=== PATIENT | female | born 1995 | race Caucasian/White ===

== ENCOUNTER 2017-03-12 13:50 | Inpatient (IN) | payer MEDICAID, OTHER ==
[2017-03-12] MEDS ORDERED: predniSONE 20 MG TAB PO ONE (13:55)
[2017-03-12] MEDS ORDERED: IPRATROPIUM/ALBUTEROL 3 ML DEYVIAL ONE ×2 (14:04→15:06)
[2017-03-12] MEDS ORDERED: ONDANSETRON DISINTEGRATING 4 MG TAB ONE (14:08)
[2017-03-12] MEDS ORDERED: ONDANSETRON DISINTEGRATING 4 MG TAB PO ONE (14:10)
[2017-03-12 15:13] LABS: % IMMATURE GRANULYOCYTES 0.3 % (0.0-1.1); ABSOLUTE IMMATURE GRANULOCYTES 0.05 10^3/uL (0.00-0.10); ADD DIFF? NO; ADD MORPH? NO; ADD SCAN? NO; ATYPICAL LYMPHOCYTE FLAG 20 (0-99); FRAGMENT RBC FLAG 0 (0-99); HEMATOCRIT 46.2 % (38.0-47.0); HEMOGLOBIN 15.7 g/dL (12.6-16.3); LEFT SHIFT FLG 0 (0-99); LIPEMIA HEMOLYSIS FLAG 90 (0-99); MEAN CELL VOLUME 85.2 fL (81.5-99.8); MEAN PLATELET VOLUME 10.3 fL (8.7-11.7); PLATELET CLUMPS FLAG 20 (0-99); PLATELET COUNT 473 10^3/uL (150-400); RED BLOOD CELL COUNT 5.42 10^6/uL (4.18-5.33); RED CELL DISTRIBUTION WIDTH 12.6 % (11.5-15.2)
[2017-03-12 15:26] LABS: INR 1.1 (0.83-1.16); PROTIME(PATIENT) 14.1 SEC (12.0-15.0)
[2017-03-12 15:27] LABS: APTT 36.5 SEC (23.0-38.0)
[2017-03-12] MEDS ORDERED: ONDANSETRON 4 MG/2 ML VIAL IVP PRN (15:36)
[2017-03-12] MEDS ORDERED: ONDANSETRON DISINTEGRATING 4 MG TAB PO PRN (15:36)
[2017-03-12] MEDS ORDERED: NS 1,000 ML IV ONE (15:36)
[2017-03-12] MEDS ORDERED: ACETAMINOPHEN 325 MG TAB PO PRN (15:36)
[2017-03-12] MEDS ORDERED: AZITHROMYCIN IV 500 MG in D5W 250 ML IV ONE (15:37)
[2017-03-12 15:41] LABS: ANION GAP 13 mEq/L (8-16); CALCIUM 9.3 mg/dL (8.5-10.4); CARBON DIOXIDE 23 mEq/l (22-31); CHLORIDE 103 mEq/L (97-110); CREATININE 0.6 mg/dL (0.6-1.0); GLOMERULAR FILTRATION RATE > 60; GLUCOSE 105 mg/dL (70-100); POTASSIUM 4.2 mEq/L (3.5-5.2); SODIUM 139 mEq/L (134-144)
--- NOTE | 2017-03-12 15:48 | EDPHY ---
H & P Stated Complaint: Asthma Exacerbation - Personal History Current Tetanus/Diphtheria Vaccine: Unsure Current Tetanus Diphtheria and Acellular Pertussis (TDAP): Unsure - Medical/Surgical History Hx Asthma: Yes Hx Chronic Respiratory Disease: No Hx Diabetes: No Hx Cardiac Disease: No Hx Renal Disease: No Hx Cirrhosis: No Hx Alcoholism: No Hx HIV/AIDS: No Hx Splenectomy or Spleen Trauma: No Other PMH: asthma - Social History Smoking Status: Former smoker HPI/ROS: Chief complaint: Asthma exacerbation History of present illness: This is a 21-year-old female who presents to the emergency department by EMS for an asthma exacerbation. Patient reports worsening trouble breathing over the last few days. She is unable to catch her breath. She denies precipitating factors. Denies alleviating factors. She does state she has had intermittent problems with her asthma for the last few weeks. Approximately 6 weeks ago she had an asthma exacerbation. She was seen at [facility] and given nebulizers, steroids and given an antibiotic because she was told she also had pneumonia. She is not sure what antibiotic it was but she took the entire course. She does feel like she improved after that episode but is again worsening. Review of systems: A 10 point review of systems was obtained and other than described above was negative (Fan Thacker) - Physical Exam Exam: General Appearance: Alert, unwell appearing. Eyes: Pupils equal and round no pallor or injection. ENT, Mouth: Mucous membranes moist. Respiratory: Patient's tachypnea. She is using accessory muscles. Diffuse wheezing is noted. Cardiovascular: Regular rate and rhythm. Gastrointestinal: Abdomen is soft and nontender, no masses, bowel sounds normal. Neurological: Alert and oriented. Strength and sensation intact and symmetrical. Skin: Warm and dry, no rashes. Musculoskeletal: Neck is supple nontender. Extremities are symmetrical, full range of motion. Psychiatric: Patient is oriented X 3, there is no agitation. (Fan Thacker) Constitutional: Initial Vital Signs Temperature (C) 37.3 C 03/12/17 13:56 Heart Rate 145 H 03/12/17 13:56 Respiratory Rate 24 H 03/12/17 13:56 Blood Pressure 113/84 H 03/12/17 13:56 O2 Sat (%) 96 03/12/17 13:56 O2 Delivery Mode Simple Mask O2 (L/minute) 15 Allergies/Adverse Reactions: No Known Allergies Allergy (Verified 03/12/17 16:17) Home Medications: Medication Instructions Recorded Albuterol [Ventolin Hfa Inhaler] 200 puffs IH Q3-4PRN PRN 03/12/17 Buprenorphine HCl/Naloxone HCl 1 each SL BID 03/12/17 [Suboxone 8 mg-2 mg Sl Film] Citalopram [CeleXA] 30 mg PO HS 03/12/17 Levonorgestrel [Mirena] 1 each IY AD 03/12/17 Medical Decision Making - Diagnostics Imaging: I viewed and interpreted images myself - Diagnostics Imaging Results: Imaging Impressions Chest X-Ray 03/12/17 13:56 Impression: Patchy interstitial infiltrates in the right middle lobe and lingula compatible with interstitial pneumonia.. ED Course/Re-evaluation: Patient is discussed with my secondary supervising physician Dr. Russell Rangel. Patient presents to the emergency department concerned she is having an asthma exacerbation. On presentation she has increased work of breathing. She is hypoxic. She has been given DuoNeb, continuous nebulizer and steroids but remains hypoxic. Chest x-ray is obtained and does show multi lobe pneumonia. She is started on Rocephin and azithromycin. Given asthma exacerbation with underlying pneumonia and persistent hypoxia she will be admitted to Dr. Ferreira for further evaluation and care. The plan has been discussed with the patient voiced understanding and agreement with it. (Fan Thacker) I did not see this patient while she was in the emergency department. However her care was discussed with the PA while the patient was in the department. I agree with treatment plan and management (Russell Rangel) Differential Diagnosis: Included but not limited to asthma exacerbation, status asthmaticus, bronchitis , pneumonia (Fan Thacker) - Data Points Laboratory Results: Laboratory Results 03/12/17 14:01 03/12/17 14:01 03/12/17 03/12/17 03/12/17 15:30 14:01 14:01 WBC RBC Hgb Hct MCV MCH MCHC RDW Plt Count MPV Neut % (Auto) Lymph % (Auto) Beadle % (Auto) Eos % (Auto) Baso % (Auto) Nucleat RBC Rel Count Absolute Neuts (auto) Absolute Lymphs (auto) Absolute Monos (auto) Absolute Eos (auto) Absolute Basos (auto) Absolute Nucleated RBC Immature Gran % Immature Gran # PT INR APTT VBG Lactic Acid 1.9 mmol/L mmol/L (0.7-2.1) Sodium 139 mEq/L mEq/L (134-144) Potassium 4.2 mEq/L mEq/L (3.5-5.2) Chloride 103 mEq/L mEq/L (97-110) Carbon Dioxide 23 mEq/l mEq/l (22-31) Anion Gap 13 mEq/L mEq/L (8-16) BUN 5 mg/dL L mg/dL (7-23) Creatinine 0.6 mg/dL mg/dL (0.6-1.0) Estimated GFR > 60 Glucose 105 mg/dL H mg/dL (70-100) Calcium 9.3 mg/dL mg/dL (8.5-10.4) Total Bilirubin 1.0 mg/dL mg/dL (0.1-1.4) Beta HCG, Qual NEGATIVE 03/12/17 03/12/17 14:01 14:00 WBC 15.01 10^3/uL H 10^3/uL (3.80-9.50) RBC 5.42 10^6/uL H 10^6/uL (4.18-5.33) Hgb 15.7 g/dL g/dL (12.6-16.3) Hct 46.2 % % (38.0-47.0) MCV 85.2 fL fL (81.5-99.8) MCH 29.0 pg pg (27.9-34.1) MCHC 34.0 g/dL g/dL (32.4-36.7) RDW 12.6 % % (11.5-15.2) Plt Count 473 10^3/uL H 10^3/uL (150-400) MPV 10.3 fL fL (8.7-11.7) Neut % (Auto) 55.1 % % (39.3-74.2) Lymph % (Auto) 19.5 % % (15.0-45.0) Beadle % (Auto) 7.7 % % (4.5-13.0) Eos % (Auto) 15.4 % H % (0.6-7.6) Baso % (Auto) 2.0 % H % (0.3-1.7) Nucleat RBC Rel Count 0.0 % % (0.0-0.2) Absolute Neuts (auto) 8.26 10^3/uL H 10^3/uL (1.70-6.50) Absolute Lymphs (auto) 2.93 10^3/uL 10^3/uL (1.00-3.00) Absolute Monos (auto) 1.16 10^3/uL H 10^3/uL (0.30-0.80) Absolute Eos (auto) 2.31 10^3/uL H 10^3/uL (0.03-0.40) Absolute Basos (auto) 0.30 10^3/uL H 10^3/uL (0.02-0.10) Absolute Nucleated RBC 0.00 10^3/uL 10^3/uL (0-0.01) Immature Gran % 0.3 % % (0.0-1.1) Immature Gran # 0.05 10^3/uL 10^3/uL (0.00-0.10) PT 14.1 SEC SEC (12.0-15.0) INR 1.10 (0.83-1.16) APTT 36.5 SEC SEC (23.0-38.0) VBG Lactic Acid Sodium Potassium Chloride Carbon Dioxide Anion Gap BUN Creatinine Estimated GFR Glucose Calcium Total Bilirubin Beta HCG, Qual Medications Given: Discontinued Medications Ceftriaxone Sodium/Dextrose (Rocephin 1 Gm (Premix)) 50 mls @ 100 mls/hr IV EDNOW ONE PRN Reason: Protocol Stop: 03/12/17 16:06 Last Admin: 03/12/17 16:03 Dose: 50 mls Sodium Chloride (Ns) 1,000 mls @ 3,000 mls/hr IV ONCE ONE Stop: 03/12/17 15:55 Last Admin: 03/12/17 16:04 Dose: 1,000 mls Ondansetron HCl (Zofran Odt) 4 mg PO EDNOW ONE Stop: 03/12/17 14:11 Last Admin: 03/12/17 14:19 Dose: 4 mg Prednisone (Prednisone) 60 mg PO EDNOW ONE Stop: 03/12/17 13:56 Last Admin: 03/12/17 14:34 Dose: 60 mg Departure - Departure Disposition: [facility] Acute Clinical Impression: Exacerbation of asthma Pneumonia Qualifiers: Pneumonia type: due to unspecified organism Laterality: unspecified laterality Lung location: unspecified part of lung Qualified Code(s): J18.9 - Pneumonia, unspecified organism Condition: Fair
--- NOTE | 2017-03-12 17:10 | GHP ---
[f rep st] HISTORY AND PHYSICAL DATE OF ADMISSION: 03/12/2017 CHIEF COMPLAINT: Shortness of breath. HISTORY OF PRESENT ILLNESS: A 21-year-old female with a history of heroin addiction and a question of possible asthma, who presents with 6 weeks of symptoms that began with an ER visit for shortness of breath and cough, where she was diagnosed with presumed pneumonia and asthma exacerbation. The p atient was treated with a course of antibiotics, she does not recall which, given some steroids and albuterol inhaler. Reports that her symptoms did get a bit better and then got worse. She had 3-4 subsequent, either Urgent Care or clinic visits, following that ER admission where she was given dif ferent courses of antibiotics and continued albuterol and/or steroid burst. She reports that none h ave really helped her. She had short term relief with some, but over the course has had steady degr adation. She notes pleuritic chest pain that localizes to the left side of her back. She has had c onsistent coughing productive of some sputum, at times discolored yellow or green. Denies any hemop tysis and reports severe shortness of breath. She reports in the last 4 days such severe shortness of breath that she has had difficulty lying down flat in bed, and therefore prompted her presentatio n to the emergency department. She describes that her appetite has been nearly nothing with her shortness of breath, and her activi ty level has been markedly low in the last 7-10 days. Denies any lower extremity edema. Denies any dysuria. Denies any nausea or vomiting. PAST MEDICAL HISTORY: 1. Heroin abuse. 2. Depression. 3. Question of possible asthma. SOCIAL HISTORY: She smokes 10 cigarettes a day. Previously smoked heroin, but has been on Suboxone for the last 3 weeks. Does not drink consistent alcohol. FAMILY HISTORY: Negative for anybody with asthma. ADVANCED DIRECTIVES: The patient is full cor, full tube. REVIEW OF SYSTEMS: A 10-point review of systems is negative, with the exception of that reported in the HPI. PHYSICAL EXAMINATION: VITAL SIGNS: Blood pressure 113/84, heart rate is 145, saturating 96% on a 1 5 L simple mask. GENERAL: This is a young-appearing female in mild distress. HEENT: Notable for dry mucous membranes. Eye exam is negative for any icterus. CARDIAC: The patient is tachycardic, but regular. PULMONARY: She is diffusely wheezing both anteriorly and posteriorly. GASTROINTESTIN AL: Positive bowel sounds, soft and nontender. MUSCULOSKELETAL: Negative for any lower extremity edema. SKIN: Is negative for any rashes. NEUROLOGIC: She is alert and oriented x3. No tremor is appreciated. PSYCHIATRIC: She is pleasant and cooperative on interview and examination. DATA: White count 15.01, hematocrit is 46, platelets of 473. INR of 1.1. Creatinine of 0.6. Beta HCG is negative. IMAGING: Chest x-ray, which I personally reviewed and interpreted, shows infiltrates in the right m iddle lobe and lingula compatible with an interstitial pneumonia, per Radiology. ASSESSMENT AND PLAN: This is a 21-year-old female with a history of heroin abuse and possible asthm a, presenting with shortness of breath and cough. 1. Acute hypoxic respiratory failure. The differential certainly includes pneumonia, but I am conc erned about possible pulmonary embolism as well with her tachycardia and pleuritic pain. Will initi ate treatment with broad-spectrum antibiotics. Obtain blood cultures to appropriately treat communi ty-acquired pneumonia, but will additionally order a CTA to rule out possible pulmonary embolism. I have initiated scheduled DuoNeb as well as albuterol p.r.n., and can treat with prednisone daily as well for reactive airways exacerbation. 2. Sinus tachycardia. It is possible that this was related to volume depletion, but certainly worr ied it may be secondary to PE. Will give fluid bolus now and see if she has any response. Will add itionally obtain a CT PE to rule out pulmonary embolism. 3. Heroin abuse, currently on Suboxone. I do not know if we have Suboxone on formulary. Will disc uss with Pharmacy. 4. Tobacco abuse. Will treat the patient with a nicotine patch. 5. Prophylaxis. Will write for Lovenox. Can certainly upgrade treatment to full dose if we find P E. DIET: Regular. DISPOSITION: I expect greater than 2 midnights, as the patient is presenting with acute hypoxic res piratory failure requiring more diagnostic workup and care for suspected community-acquired pneumoni a. I have discussed the case with the emergency room physician. The patient will be triaged to the [facility]-surgical floor for care. /[id number]/MODL
[2017-03-12] MEDS ORDERED: IOPAMIDOL (ISOVUE 370) 100 ML BTL IV ONE (17:11)
[2017-03-12] MEDS: IPRATROPIUM/ALBUTEROL 3 ML DEYVIAL IH SCH ×2 (18:25→21:22)
[2017-03-12] MEDS: NICOTINE 14 MG/24 HR PATCH TD SCH (20:12)
[2017-03-12] MEDS: CITALOPRAM 20 MG TAB PO SCH (20:13)
[2017-03-12] MEDS: guaiFENesin 600 MG TAB.ER PO SCH (20:13)
[2017-03-13] MEDS: ALBUTEROL 3 ML DEYVIAL IH PRN (01:47)
[2017-03-13 04:45] LABS: % IMMATURE GRANULYOCYTES 0.4 % (0.0-1.1); ABSOLUTE IMMATURE GRANULOCYTES 0.04 10^3/uL (0.00-0.10); ADD DIFF? NO; ADD MORPH? NO; ADD SCAN? NO; ATYPICAL LYMPHOCYTE FLAG 0 (0-99); FRAGMENT RBC FLAG 0 (0-99); HEMOGLOBIN 13.1 g/dL (12.6-16.3); LEFT SHIFT FLG 10 (0-99); LIPEMIA HEMOLYSIS FLAG 80 (0-99); MEAN CELL HEMOGLOBIN CONCENTR. 33.6 g/dL (32.4-36.7); MEAN CELL VOLUME 86.5 fL (81.5-99.8); MEAN PLATELET VOLUME 10.2 fL (8.7-11.7); PLATELET CLUMPS FLAG 0 (0-99); PLATELET COUNT 368 10^3/uL (150-400); RED BLOOD CELL COUNT 4.51 10^6/uL (4.18-5.33); RED CELL DISTRIBUTION WIDTH 12.3 % (11.5-15.2)
[2017-03-13] MEDS: IPRATROPIUM/ALBUTEROL 3 ML DEYVIAL IH SCH ×4 (05:53→20:33)
[2017-03-13] MEDS: guaiFENesin 600 MG TAB.ER PO SCH ×2 (09:43→20:47)
[2017-03-13] MEDS: predniSONE 20 MG TAB PO SCH (09:44)
[2017-03-13] MEDS: AZITHROMYCIN IV 500 MG in D5W 250 ML IV SCH (09:45)
[2017-03-13] MEDS: NICOTINE 14 MG/24 HR PATCH TD SCH (09:45)
[2017-03-13] MEDS: ENOXAPARIN 40 MG/0.4 ML SYR SC SCH (09:45)
--- NOTE | 2017-03-13 12:19 | CPEKG ---
Heart Rate: 86 RR Interval: 698 P-R Interval: 160 QRSD Interval: 88 QT Interval: 384 QTC Interval: 460 P Macon: 72 QRS Macon: 81 T Wave Macon: 41 EKG Severity - NORMAL ECG - EKG Impression: SINUS RHYTHM Electronically Signed By: eMl Brandt 13-Mar-2017 17:08:44
--- NOTE | 2017-03-13 14:49 | HOSPPROG ---
Hospitalist Progress Note Assessment/Plan: 21 yo F with PMH of heroin addiction and likely RAD presenting with acute hypoxic resp failure as well as pna # acute hypoxic respiratory failure: presenting with significant shortness of breath, increased wob and accessory muscle use and requiring 2-3 L to maintain o2 sats in mid 90s. Related to PNA, RAD exacerbation as next. Improving, weaning off of o2. # pna: patient has failed several courses of op mgmt at this point, on personal review of CTA she is noted to have multifocal pna with associated e/o bronchitis and mucus plugging. Started on ctx/azith. blood cultures with ngtd # RAD w/acute exacerbation: patient not sure if she has had a prior hx of RAD but significant wheeze on exam with limited air mvmt, continue BDs, prednisone for now. # tachycardia: improved, no PE on CTA, on personal review of ecg noted to be SR , rate in the 90s, no ischemic changes. Likely related to infection/albuterol. # heroin abuse: on suboxone which will be continued # dispo: IP status, will need > 48 hours stay for eval/mgmt of above Patient new to my care. Old records reviewed and summarized as above Subjective: no significant overnight events, patient currently feeling slightly better but still sob w/exertion, productive cough, no fevers or chills Objective: Vital Signs Temp Pulse Resp BP Pulse Ox 36.8 C 82 18 117/75 93 03/13/17 11:16 03/13/17 11:16 03/13/17 11:16 03/13/17 11:16 03/13/17 11:16 Laboratory Results 03/13/17 04:34 03/12/17 03/13/17 03/14/17 05:59 05:59 05:59 Intake Total 3900 Balance 3900 PT 14.1 SEC (12.0-15.0) 03/12/17 14:00 INR 1.10 (0.83-1.16) 03/12/17 14:00 wd/wn/nad anicteric op clear rrr no mrg scattered insp/exp wheeze, scattered rhonchi, inc wob soft nt nd no cce warm dry well perfused oriented appropriate ICD10 Worksheet Patient Problems: Problems Problem Status Onset Pneumonia Acute Exacerbation of asthma Acute
[2017-03-13 15:28] LABS: ANION GAP 11 mEq/L (8-16); CALCIUM 9.5 mg/dL (8.5-10.4); CARBON DIOXIDE 21 mEq/l (22-31); CHLORIDE 106 mEq/L (97-110); CREATININE 0.5 mg/dL (0.6-1.0); GLOMERULAR FILTRATION RATE > 60; GLUCOSE 202 mg/dL (70-100); POTASSIUM 4.5 mEq/L (3.5-5.2); SODIUM 138 mEq/L (134-144)
[2017-03-13] MEDS: CITALOPRAM 20 MG TAB PO SCH (20:48)
[2017-03-14] MEDS: ALBUTEROL 3 ML DEYVIAL IH PRN (02:48)
[2017-03-14] MEDS: IPRATROPIUM/ALBUTEROL 3 ML DEYVIAL IH SCH ×4 (06:24→23:25)
[2017-03-14] MEDS: NICOTINE 14 MG/24 HR PATCH TD SCH (09:12)
[2017-03-14] MEDS: guaiFENesin 600 MG TAB.ER PO SCH (09:13)
[2017-03-14] MEDS: predniSONE 20 MG TAB PO SCH (09:16)
[2017-03-14] MEDS: ENOXAPARIN 40 MG/0.4 ML SYR SC SCH (09:17)
[2017-03-14] MEDS: AZITHROMYCIN IV 500 MG in D5W 250 ML IV SCH (09:58)
--- NOTE | 2017-03-14 10:59 | HOSPPROG ---
Hospitalist Progress Note Assessment/Plan: 21 yo F with PMH of heroin addiction and likely RAD presenting with acute hypoxic resp failure as well as pna # acute hypoxic respiratory failure: presenting with significant shortness of breath, increased wob and accessory muscle use and requiring 2-3 L to maintain o2 sats in mid 90s. Related to PNA, RAD exacerbation as next. Improving, though still with significant diffuse wheeze. Will ambulate on RA and wean as able. # pna: patient has failed several courses of op mgmt at this point, on personal review of CTA she is noted to have multifocal pna with associated e/o bronchitis and mucus plugging. Started on ctx/azith. blood cultures with ngtd. Repeat cxr today. # RAD w/acute exacerbation: continued to have diffuse insp/exp wheeze. Continue on prednisone, will begin to taper. Continue scheduled nebs and prn albuterol. # tachycardia: improved, no PE on CTA, on personal review of ecg noted to be SR , rate in the 90s, no ischemic changes. Likely related to infection/albuterol. # heroin abuse: on suboxone which will be continued # dispo: IP status, will need > 48 hours stay for eval/mgmt of above Reviewed with patients mother ongoing care plan Subjective: no significant overnight events. continues to have sob and wheeze, no fever Objective: Vital Signs Temp Pulse Resp BP Pulse Ox 36.8 C 84 18 122/68 H 94 03/14/17 07:08 03/14/17 10:25 03/14/17 10:25 03/14/17 07:08 03/14/17 07:08 Laboratory Results 03/13/17 04:34 03/13/17 04:34 03/13/17 03/14/17 03/15/17 05:59 05:59 05:59 Intake Total 3900 1000 Balance 3900 1000 PT 14.1 SEC (12.0-15.0) 03/12/17 14:00 INR 1.10 (0.83-1.16) 03/12/17 14:00 wd/wn/nad anicteric op clear rrr no mrg scattered insp/exp wheeze, scattered rhonchi, inc wob soft nt nd no cce warm dry well perfused oriented appropriate - Time Spent With Patient Time Spent with Patient: greater than 35 minutes Time Spent with Patient: Greater than 35 minutes spent on this patients care, greater than 50% of time spent counseling, educating, and coordinating care regarding the above mentioned plan. ICD10 Worksheet Patient Problems: Problems Problem Status Onset Exacerbation of asthma Acute Pneumonia Acute
[2017-03-14] MEDS: ACETYLCYSTEINE 10% 30 ML VIAL IH SCH ×3 (11:35→23:25)
[2017-03-14] MEDS: CITALOPRAM 20 MG TAB PO SCH (20:19)
[2017-03-15] MEDS: ACETYLCYSTEINE 10% 30 ML VIAL IH SCH ×4 (05:05→21:14)
[2017-03-15] MEDS: IPRATROPIUM/ALBUTEROL 3 ML DEYVIAL IH SCH ×4 (05:05→21:14)
[2017-03-15] MEDS: ENOXAPARIN 40 MG/0.4 ML SYR SC SCH (08:39)
[2017-03-15] MEDS: predniSONE 20 MG TAB PO SCH (08:40)
[2017-03-15] MEDS: NICOTINE 14 MG/24 HR PATCH TD SCH (08:40)
[2017-03-15] MEDS: AZITHROMYCIN IV 500 MG in D5W 250 ML IV SCH (08:47)
--- NOTE | 2017-03-15 14:35 | HOSPPROG ---
Hospitalist Progress Note Assessment/Plan: 21 yo F with PMH of heroin addiction and likely RAD presenting with acute hypoxic resp failure as well as pna # acute hypoxic respiratory failure: presenting with significant shortness of breath, increased wob and accessory muscle use and requiring 2-3 L to maintain o2 sats in mid 90s. Related to PNA, RAD exacerbation as next. Continues to improve significantly, has mostly been able to maintain o2 sats on RA today other than a couple of dips. Likely dc in am. Talked with mother on the phone who was very anxious that patient needs a pulmonary consultation while in house as well as consideration for chest MRI--appreciate pulmonary consult and explained that MRI would not add new information. # pna: patient has failed several courses of op mgmt at this point, on personal review of CTA she is noted to have multifocal pna with associated e/o bronchitis and mucus plugging. Started on ctx/azith. blood cultures with ngtd. Repeat cxr personally reviewed and interpreted and significantly improved infiltrates. # RAD w/acute exacerbation: improved significantly. Discussed with pulmonary-- some atypical features for asthma and he plans to do PFT after dc. Another consideration is for hypersensitivity pneumonitis. # tachycardia: improved, no PE on CTA, on personal review of ecg noted to be SR , rate in the 90s, no ischemic changes. Likely related to infection/albuterol. # heroin abuse: on suboxone which will be continued # dispo: IP status, will need > 48 hours stay for eval/mgmt of above Reviewed with patients mother and with Dr. Foster Subjective: no significant overnight events, patient feeling better today, off of oxygen Objective: Vital Signs Temp Pulse Resp BP Pulse Ox 36.8 C 73 18 114/64 98 03/15/17 07:33 03/15/17 07:33 03/15/17 12:17 03/15/17 07:33 03/15/17 12:17 Laboratory Results 03/13/17 04:34 03/13/17 04:34 03/14/17 03/15/17 03/16/17 05:59 05:59 05:59 Intake Total 1000 1120 Balance 1000 1120 PT 14.1 SEC (12.0-15.0) 03/12/17 14:00 INR 1.10 (0.83-1.16) 03/12/17 14:00 awake alert anicteric op clear rrr no mrg dec bs scattered wheeze soft nt nd no cce warm dry well perfused oriented appropriate - Time Spent With Patient Time Spent with Patient: greater than 35 minutes Time Spent with Patient: Greater than 35 minutes spent on this patients care, greater than 50% of time spent counseling, educating, and coordinating care regarding the above mentioned plan. ICD10 Worksheet Patient Problems: Problems Problem Status Onset Pneumonia Acute Exacerbation of asthma Acute
--- NOTE | 2017-03-15 20:00 | GCON ---
[f rep st] CONSULTATION PULMONARY CONSULT. The patient is a 21-year-old female with a remote history of heroin addiction, and possibly asthma, who has had shortness of breath and cough, and asthma exacerbation. She has had several varieties o f antibiotics and inhalers in an out of her ID of urgent care visits and primary care visits with oc casional steroids. She seems to get relief from each one of these courses, but came in with ongoing issues of shortness of breath and was found to be hypoxic. A CT scan was performed that revealed p atchy ground-glass infiltrates. She was treated for pneumonia with an elevated white count with ant ibiotics, as well as prednisone and bronchodilators, and she has had a very good response, but was q uite concerned about the diagnosis of asthma and asked that I comment on this. She has had no histo ry of asthma in the past, and no family history of asthma. There is no known obstructive sleep apnea, though she is overweight, and there is no family history of sleep apnea. She has no snoring and no excess daytime somnolence, though she readily admitted to poor sleep hygiene. She has had depression and heroin abuse in the past but is not currently using heroin, and has had no aspiration event that we are aware of. She also smokes some but recently st opped that. REVIEW OF SYSTEMS: Otherwise negative. PAST MEDICAL HISTORY: Includes heroin abuse, depression, possibly asthma. SOCIAL HISTORY: Smoking history is as described above, and does not drink a lot of alcohol. No IV drug use at this time. FAMILY HISTORY: Negative for both asthma and sleep apnea. CURRENT MEDICATIONS: Include albuterol, Mucomyst, azithromycin, Suboxone, ceftriaxone, Celexa, Love nox, and prednisone 60 mg daily. PHYSICAL EXAMINATION: VITAL SIGNS: She was afebrile, blood pressure was 114/64, heart rate 73, oxy gen saturation was 98% on 1 L. GENERAL: She is a pleasant but overweight young woman in no apparen t distress, spoke in full sentences without using accessory muscles for breathing. HEENT: Pupils a re equally round, reactive to light. Nonicteric and noninjected. Mucous membranes are moist withou t erythema or exudate. NECK: Supple without adenopathy or jugular vein distention. There is no th saldana. RESPIRATORY: Breath sounds were diffusely coarse bilaterally without expiratory wheezing or stridor. HEART: Regular rate and rhythm without murmurs, rubs, or gallops. ABDOMEN: Soft, nonten zo, nondistended, without hepatosplenomegaly. EXTREMITIES: No clubbing, cyanosis, or edema. NEUR OLOGICAL: Exam is grossly nonfocal. OBJECTIVE DATA: Includes a CT scan showing the patchy infiltrates as described above but no bronchi ectasis, and no pleural effusions. Her white count was 15 on arrival, and the following day was 9.0 , but otherwise her labs were fairly unremarkable. She also point out that she did have eosinophils on day 1, that reduced to 0 on day 2. ASSESSMENT AND PLAN: 1. Pneumonia, which is being treated for at this time with possible asthma as well. I agree with t he current antibiotics that she is on, titrating oxygen. I stressed to her that getting out of bed and using incentive spirometry would certainly help eliminate her oxygen requirement. She can finis h her antibiotics, and we will see how well she does. 2. Possible asthma. It is certainly possible she has asthma, since we cannot rule that out at this time I think it is reasonable to continue with her bronchodilators and steroids, which we should ta per slowly over the next couple of weeks. Once she completes her steroid taper she can come back an d see me. I will do complete pulmonary function test as an outpatient, and consider methacholine ch allenge depending on the results. I do not see much evidence to support ABPA at this time, or other opportunistic infections, and she seems to be doing fairly well on her current regimen. /[id number]/MODL
[2017-03-15] MEDS: CITALOPRAM 20 MG TAB PO SCH (20:50)
[2017-03-16] MEDS: ALBUTEROL 3 ML DEYVIAL IH PRN (03:03)
[2017-03-16] MEDS: ACETYLCYSTEINE 10% 30 ML VIAL IH SCH ×2 (05:50→13:57)
[2017-03-16] MEDS: IPRATROPIUM/ALBUTEROL 3 ML DEYVIAL IH SCH ×2 (06:14→13:57)
[2017-03-16 07:48] VITALS: BP 121/76; TEMP 97.8
[2017-03-16] MEDS: AZITHROMYCIN IV 500 MG in D5W 250 ML IV SCH (08:05)
[2017-03-16] MEDS: predniSONE 20 MG TAB PO SCH (08:05)
[2017-03-16] MEDS: ENOXAPARIN 40 MG/0.4 ML SYR SC SCH (08:05)
[2017-03-16] MEDS: NICOTINE 14 MG/24 HR PATCH TD SCH (10:30)
[2017-03-16 14:05] VITALS: PULSE 68; RESP 18; O2SAT 94
--- NOTE | 2017-03-16 14:27 | GDS ---
[f rep st] DISCHARGE SUMMARY DISCHARGE DIAGNOSES: 1. Acute hypoxemic respiratory failure. 2. Community-acquired pneumonia. 3. Reactive airway disease, acute exacerbation due to above. 4. Resolved tachycardia. 5. History of heroin abuse, on Suboxone. CONSULTATIONS: Dr. Salbador Foster, pulmonology. HOSPITAL COURSE: Acute hypoxemic respiratory failure in the setting of community-acquired pneumonia and exacerbation of reactive airway disease: The patient presented to the hospital, where she was found to be tachycardic. Subsequently, a CT angio of the chest was done that was negative for PE bu t showed bronchitis with mucus plugging and scattered ground-glass opacities and multifocal consolid ation, suggesting pneumonia. She was started on azithromycin and ceftriaxone. On hospital day #5, she is maintaining adequate oxygenation on room air, with room air saturations of 94%. Her lungs ar e clear. She tells me that she is feeling better and is agreeable to be discharged home. She does have a mild sore throat that started last night. Prior to discharge, I discussed the case with Dr. Foster, who saw her in consultation and plans to see her in the outpatient setting for PFTs to furthe r solidify the diagnosis of asthma. Dr. Foster recommended that she be discharged on a prednisone ta per, to be tapered by 10 mg per day over the next 4 days. She should continue with her breathing tr eatments. PHYSICAL EXAM: VITAL SIGNS: On the day of discharge, blood pressure 121/76, pulse is 70, respirato ry rate 20, O2 sat ranged from 94% to 91% on room air, temperature afebrile. GENERAL: No acute dis tress. HEART: S1, S2. LUNGS: Clear. No wheezes, rales, or rhonchi. ABDOMEN: Soft, nontender, nondistended. No guarding or rebound tenderness. Normoactive bowel sounds. PERTINENT LABORATORY DATA: Influenza A and B were negative by PCR. Blood cultures drawn on 017, no growth. DISCHARGE MEDICATIONS: Please refer to discharge medication reconciliation in [facility] for full det ails. Below is a preliminary list. New medications on hospital discharge: Omnicef 300 mg p.o. b.i.d. for 3 more days; prednisone 10 mg tablets, 40 mg to be taken on day 1, then to be tapered by 10 mg daily over the next 4 day. All other home medications were continued at her usual home dosages. DISCHARGE INSTRUCTIONS: The patient will be discharged from the hospital, where once again she was urged to follow up with Dr. Foster. She should seek medical attention if her condition worsens. Copy requested to: Primary Care Physician /[id number]/MODL
== END 2017-03-16 15:36 | disposition home or self-care (01) | DRG 202 ==
LOC: EDUNIT# → OBSVTOIN 15:36 → F2W 18:32
PROVIDERS: ADMIT Hospitalist; ATTEND Family Medicine
DX: J45.901 Unspecified asthma with (acute) exacerbation (principal); J18.9 Pneumonia, unspecified organism; J96.01 Acute respiratory failure with hypoxia; Z79.891 Long term (current) use of opiate analgesic
CPT/HCPCS: J0456; J0574; J0696; J1650; Q9967

== ENCOUNTER 2017-08-06 02:01 | Inpatient (IN) | payer MEDICAID ==
[2017-08-06] MEDS ORDERED: IPRATROPIUM/ALBUTEROL 3 ML DEYVIAL ONE (02:12)
[2017-08-06] MEDS ORDERED: IPRATROPIUM/ALBUTEROL 3 ML DEYVIAL IH ONE (02:16)
[2017-08-06] MEDS ORDERED: NS 1,000 ML IV ONE ×2 (02:16→02:21)
[2017-08-06] MEDS ORDERED: methylPREDNISolone SOD SUCC 125 MG/2 ML VIAL IVP ONE (02:17)
--- NOTE | 2017-08-06 02:17 | EDPHY ---
H & P Stated Complaint: ASTHMA ATTACK. DYSPNEA HPI/ROS: HPI CHIEF COMPLAINT: Asthma attack HISTORY OF PRESENT ILLNESS: Patient very pleasant 21-year-old female significant past medical history for asthma, uses an albuterol inhaler, she states over the past 2-3 days she has had progressively worsening shortness of breath wheezing. She states she does smoke cigarettes and marijuana and also smoked heroin this past 2 days. She thinks this made her asthma worse. She states she has used her albuterol inhaler 40+ times. She presents emergency room as she has ongoing wheezing and shortness of breath. Denies productive cough. Denies fever. Of note upon arrival to the emergency room is noted to be tachycardic, tachypneic and hypoxic. 84%. Heart rate 140s. Past Medical History: Asthma Past Surgical History: No recent surgery Social History: Daily tobacco use, marijuana use, smokes heroin. Family History: Noncontributory ROS REVIEW OF SYSTEMS: A comprehensive 10 point review of systems is otherwise negative aside from elements mentioned in the history of present illness. Exam Constitutional triage nursing summary reviewed, vital signs reviewed, awake/ alert. Vital signs noted. Hypoxic, tachycardic. Eyes normal conjunctivae and sclera, EOMI, PERRLA. HENT normal inspection, atraumatic, moist mucus membranes, no epistaxis, neck supple/ no meningismus, no raccoon eyes. Respiratory decreased breath sounds bilaterally. Audible wheezing. Wheezing throughout all lung mena. Cardiovascular rate normal, regular rhythm, no murmur, no edema, distal pulses normal. Gastrointestinal soft, non-tender, no rebound, no guarding, normal bowel sounds, no distension, no pulsatile mass. Genitourinary no CVA tenderness. Musculoskeletal no midline vertebral tenderness, full range of motion, no calf swelling, no tenderness of extremities, no meningismus, good pulses, neurovascularly intact. Skin pink, warm, & dry, no rash, skin atraumatic. Neurologic awake, alert and oriented x 3, AAOx3, moves all 4 extremities equally, motor intact, sensory intact, CN II-XII intact, normal cerebellar, normal vision, normal speech. Psychiatric normal mood/affect. Heme/Lymph/Immune no lymphadenopathy. Differential Diagnosis: Includes but is not limited to in a particular order acute asthma attack, reactive airway disease, pneumothorax, pneumonia, polysubstance abuse Medical Decision Making: Plan for this patient DuoNeb breathing treatment, IV Solu-Medrol 125 mg, IV fluid bolus 1 L, IV magnesium, chest x-ray one view, EKG for tachycardia. Blood work. Close observation and re-evaluation. Re-evaluation: X-ray chest one view this shows haziness in the right upper lobe. Again also haziness in the lingular region. Concerning for multifocal pneumonia very small. Versus scarring. In the setting that this patient is hypoxic however clinically on exam is a bronchitic sounding cough and asthma with wheezing most likely acute asthma attack but she does have haziness in 2 areas of her lung mena. Will treat for pneumonia she has had pneumonia before. IV Rocephin has been ordered IV azithromycin has been ordered. [id number]: Additionally at this time this patient noted to be tachycardic and hypoxic. She is concurrently getting a continuous albuterol nebulizer. Her vitals are 95% on continuous albuterol neb. Heart rate 155. I did go re-evaluate her at this time 0257: Improving, Still elevated HR, Tachypnea, Hypoxia. Needs SDU or ICU care. Admit to Hospalist. Critical Care: Total Critical Care Time Spent Managing this Patient: 65 Minutes. This time was spent Exclusively with this patient. This Care was exclusive of procedures. The Organ System/life at risk was pulmonary This Patient was in Critical Condition because acute asthma exacerbation with a heart rate in the 160s oxygen level in the 80s, tachypneic in the 40s respiratory distress, impending respiratory failure, hypoxic respiratory failure . Source: Patient - Personal History LMP (Females 10-55): 1-7 Days Ago - Medical/Surgical History Hx Asthma: Yes Hx Chronic Respiratory Disease: No Hx Diabetes: No Hx Cardiac Disease: No Hx Renal Disease: No Hx Cirrhosis: No Hx Alcoholism: No Hx HIV/AIDS: No Hx Splenectomy or Spleen Trauma: No Other PMH: heroine use, tobacco smoke, asthma, 3 aborted pregnancies - Social History Smoking Status: Heavy smoker Constitutional: Initial Vital Signs Temperature (C) 36.8 C 08/06/17 02:06 Heart Rate 146 H 08/06/17 02:06 Respiratory Rate 24 H 08/06/17 02:06 Blood Pressure 110/87 H 08/06/17 02:06 O2 Sat (%) 85 L 08/06/17 02:06 O2 Delivery Mode Room Air Allergies/Adverse Reactions: No Known Allergies Allergy (Verified 03/12/17 16:17) Home Medications: Medication Instructions Recorded Albuterol [Proventil Inhaler HFA 1 - 2 puffs IH Q4-6PRN PRN 08/06/17 (*)] Medical Decision Making - Data Points Laboratory Results: Laboratory Results 08/06/17 02:28 08/06/17 02:28 Medications Given: Diphenhydramine HCl (Benadryl) 25 - 50 mg PO Q6HRS PRN PRN Reason: Itching Stop: 02/02/18 03:43 Last Admin: 08/06/17 20:55 Dose: 50 mg Levalbuterol (Xopenex 1.25mg Neb) 1.25 mg IH Q4H ERA Stop: 02/02/18 10:29 Last Admin: 08/06/17 16:56 Dose: 1.25 mg Prednisone (Prednisone) 60 mg PO DAILY ERA Stop: 02/02/18 08:59 Last Admin: 08/06/17 07:50 Dose: 60 mg Discontinued Medications Albuterol (Proventil Neb) 10 ml IH CONT ONE Stop: 08/06/17 02:25 Last Admin: 08/06/17 02:57 Dose: 10 ml Albuterol (Proventil Neb) 3 ml IH Q2HRS PRN PRN Reason: Short of Breath/Dyspnea Stop: 02/02/18 03:43 Last Admin: 08/06/17 04:25 Dose: 3 ml Albuterol/Ipratropium (Duoneb) 3 ml IH EDNOW ONE Stop: 08/06/17 02:17 Last Admin: 08/06/17 02:27 Dose: 3 ml Sodium Chloride (Ns) 1,000 mls @ 0 mls/hr IV EDNOW ONE; Wide Open PRN Reason: Protocol Stop: 08/06/17 02:17 Last Admin: 08/06/17 02:33 Dose: 1,000 mls Magnesium Sulfate (Magnesium Sulf 2 Gm (Premix)) 50 mls @ 50 mls/hr IV EDNOW ONE Stop: 08/06/17 03:18 Last Admin: 08/06/17 02:36 Dose: 50 mls Sodium Chloride (Ns) 1,000 mls @ 0 mls/hr IV ONCE ONE PRN Reason: Wide Open Stop: 08/06/17 02:22 Last Admin: 08/06/17 02:34 Dose: 1,000 mls Azithromycin 500 mg/ Dextrose 255 mls @ 255 mls/hr IV EDNOW ONE PRN Reason: Protocol Stop: 08/06/17 03:55 Last Admin: 08/06/17 05:12 Dose: 255 mls Ceftriaxone Sodium/Dextrose (Rocephin 1 Gm (Premix)) 50 mls @ 100 mls/hr IV EDNOW ONE PRN Reason: Protocol Stop: 08/06/17 03:25 Last Admin: 08/06/17 04:08 Dose: 50 mls Methylprednisolone Sodium Succinate (Solu-Medrol) 125 mg IVP EDNOW ONE Stop: 08/06/17 02:18 Last Admin: 08/06/17 02:41 Dose: 125 mg Departure - Departure Disposition: Foot[facility] Inpatient Acute Clinical Impression: Acute respiratory failure with hypoxia, Respiratory distress Acute asthma exacerbation Qualifiers: Asthma severity: severe Asthma persistence: persistent Qualified Code(s): J45.51 - Severe persistent asthma with (acute) exacerbation Condition: Critical
[2017-08-06] MEDS ORDERED: MAGNESIUM SULF 2 GM/WATER 50 ML IV ONE (02:19)
[2017-08-06] MEDS ORDERED: ALBUTEROL 3 ML DEYVIAL IH ONE (02:24)
[2017-08-06 02:39] LABS: ADD DIFF? YES; ADD MORPH? NO; ADD SCAN? NO; ATYPICAL LYMPHOCYTE FLAG 0 (0-99); FRAGMENT RBC FLAG 0 (0-99); HEMATOCRIT 46.9 % (38.0-47.0); HEMOGLOBIN 16.1 g/dL (12.6-16.3); LEFT SHIFT FLG 0 (0-99); LIPEMIA HEMOLYSIS FLAG 90 (0-99); MEAN CELL HEMOGLOBIN 28.7 pg (27.9-34.1); MEAN CELL HEMOGLOBIN CONCENTR. 34.3 g/dL (32.4-36.7); MEAN CELL VOLUME 83.6 fL (81.5-99.8); MEAN PLATELET VOLUME 10.2 fL (8.7-11.7); PLATELET CLUMPS FLAG 20 (0-99); PLATELET COUNT 315 10^3/uL (150-400); RED BLOOD CELL COUNT 5.61 10^6/uL (4.18-5.33); RED CELL DISTRIBUTION WIDTH 12.9 % (11.5-15.2)
[2017-08-06 02:50] LABS: ANION GAP 13 mEq/L (8-16); CALCIUM 10.2 mg/dL (8.5-10.4); CARBON DIOXIDE 26 mEq/l (22-31); CHLORIDE 98 mEq/L (97-110); CREATININE 0.8 mg/dL (0.6-1.0); GLOMERULAR FILTRATION RATE > 60; GLUCOSE 107 mg/dL (70-100); POTASSIUM 3.6 mEq/L (3.5-5.2); SODIUM 137 mEq/L (134-144)
[2017-08-06] MEDS ORDERED: AZITHROMYCIN IV 500 MG in D5W 250 ML IV ONE (02:56)
[2017-08-06 03:37] LABS: PLATELET ESTIMATE ADEQUATE (ADEQ)
[2017-08-06] MEDS ORDERED: ONDANSETRON 4 MG/2 ML VIAL IVP PRN (03:38)
[2017-08-06] MEDS ORDERED: ACETAMINOPHEN 325 MG TAB PO PRN (03:38)
[2017-08-06] MEDS ORDERED: diphenhydrAMINE 25 MG CAP PO PRN (03:44)
[2017-08-06] MEDS ORDERED: ALBUTEROL 3 ML DEYVIAL IH PRN (03:44)
[2017-08-06] MEDS ORDERED: NS 1,000 ML IV SCH (03:45)
--- NOTE | 2017-08-06 06:22 | PDGENHP ---
History and Physical - Chief Complaint shortness of breath - History of Present Illness Source - Patient provides history and appears reliable. HPI - 21 yo F with pmhx significant for asthma, tobacco and smoked heroin abuse who presents to ED today with complaint of 3 days increasing SOB, wheezing and some cough. Patient denies any fevers/chills. no known sick contacts. symptoms started after patient smoked heroin. She developed bilateral chest tightness with pleuritic chest pain. mild nausea. Patient denies any myalgias. no vomiting or diarrhea. In the ED, patient was noted to be in significant increased work of breathing and decreased air movement. She was given steroids, oxygen and continuous nebs with improvement in respiratory status. History Information - Allergies/Home Medication List Allergies/Adverse Reactions: No Known Allergies Allergy (Verified 03/12/17 16:17) Home Medications: Albuterol [Ventolin Hfa Inhaler] 200 puffs IH Q3-4PRN PRN 03/12/17 [Last Taken 03/12/17] Buprenorphine HCl/Naloxone HCl [Suboxone 8 mg-2 mg SL Film] 1 each SL BID [Last Taken 03/11/17] Citalopram [CeleXA 20 MG] 30 mg PO HS 03/12/17 [Last Taken 03/11/17] Levonorgestrel [MIRENA] 1 each IY AD 03/12/17 [Last Taken 03/12/17] I have personally reviewed and updated: family history, medical history, social history, surgical history - Past Medical History asthma Additional medical history: smokes heroin - Surgical History Reports: no pertinent surgical hx Additional surgical history: patient denies - Family History Negative for: asthma Additional family history: MGF with tongue cancer - Social History Smoking Status: Heavy smoker Tobacco Use: Cigarettes Alcohol Use: None Drug Use: Heroin (smokes tar) Review of Systems Review of Systems: ROS: 10pt was reviewed & negative except for what was stated in HPI & below Constitutional: Denies: chills, fever EENMT: Reports: sore throat. Denies: nose congestion Cardiac: Reports: other (pleuritic bilateral chest pain now resolved with improvement in breathing) Respiratory: Reports: cough, shortness of breath, wheezing Gastrointestinal: Reports: nausea. Denies: vomitting, diarrhea Genitourinary: Reports: no symptoms Muscolosketal: Reports: no symptoms Skin: Reports: no symptoms Neurological: Reports: anxiety, tremors (s/p albuterol improved.). Denies: headache, numbness Hematologic/Lymphatic: Denies: anemia, easy bleeding Immunologic/Allergy: Reports: pollen allergy Physical Exam Physical Exam: Temp Pulse Resp BP Pulse Ox 36.8 C 120 H 19 105/72 91 L 08/06/17 02:06 08/06/17 05:34 08/06/17 05:34 08/06/17 05:34 08/06/17 05:34 O2 (L/minute) 4 Constitutional: no apparent distress, appears nourished Eyes: PERRL, anicteric sclera, EOMI Ears, Nose, Mouth, Throat: dry mucous membranes, other (no nasal discharge. ) Cardiovascular: no murmur, rub, or gallop, tachycardia Peripheral Pulses: 2+: dorsalis-pedis (R), dorsalis-pedis (L) Respiratory: no respiratory distress, reduced air movement (bases more that upper lung mena. ), expiratory wheeze Gastrointestinal: normoactive bowel sounds, distension Genitourinary: No no bladder tenderness, No verde in urethra Skin: warm, No rash Musculoskeletal: full muscle strength, No generalized weakness Neurologic: AAOx3, CN II-XII Intact, No weakness Psychiatric: anxious, No poor insight, No poor judgement, No poor memory Lymph, Heme, Immunologic: No lymphadenopathy Lab Data & Imaging Review 08/06/17 02:28 08/06/17 02:28 WBC 19.92 10^3/uL (3.80-9.50) H 08/06/17 02:28 RBC 5.61 10^6/uL (4.18-5.33) H 08/06/17 02:28 Hgb 16.1 g/dL (12.6-16.3) 08/06/17 02:28 Hct 46.9 % (38.0-47.0) 08/06/17 02:28 MCV 83.6 fL (81.5-99.8) 08/06/17 02:28 MCH 28.7 pg (27.9-34.1) 08/06/17 02:28 MCHC 34.3 g/dL (32.4-36.7) 08/06/17 02:28 RDW 12.9 % (11.5-15.2) 08/06/17 02:28 Plt Count 315 10^3/uL (150-400) 08/06/17 02:28 MPV 10.2 fL (8.7-11.7) 08/06/17 02:28 Neut % (Auto) Not Reported 08/06/17 02:28 Lymph % (Auto) Not Reported 08/06/17 02:28 [place] % (Auto) Not Reported 08/06/17 02:28 Eos % (Auto) Not Reported 08/06/17 02:28 Baso % (Auto) Not Reported 08/06/17 02:28 Nucleat RBC Rel Count 0.0 % (0.0-0.2) 08/06/17 02:28 Absolute Neuts (auto) Not Reported 08/06/17 02:28 Absolute Lymphs (auto) Not Reported 08/06/17 02:28 Absolute Monos (auto) Not Reported 08/06/17 02:28 Absolute Eos (auto) Not Reported 08/06/17 02:28 Absolute Basos (auto) Not Reported 08/06/17 02:28 Absolute Nucleated RBC 0.00 10^3/uL (0-0.01) 08/06/17 02:28 Immature Gran % Not Reported 08/06/17 02:28 Seg Neutrophils % 41 % 08/06/17 02:28 Band Neutrophils % 3 % 08/06/17 02:28 Lymphocytes % 13 % 08/06/17 02:28 Monocytes % 3 % 08/06/17 02:28 Eosinophils % 38 % 08/06/17 02:28 Basophils % 2 % 08/06/17 02:28 Immature Gran # Not Reported 08/06/17 02:28 Absolute Seg Neuts 8.17 10^/uL (1.70-6.50) H 08/06/17 02:28 Absolute Band Neuts 0.60 10^3/uL (0.00-0.70) 08/06/17 02:28 Absolute Lymphocytes 2.59 10^3/uL (1.00-3.00) 08/06/17 02:28 Absolute Monocytes 0.60 10^3/uL (0.30-0.80) 08/06/17 02:28 Absolute Eosinophils 7.57 10^3/uL (0.03-0.40) H 08/06/17 02:28 Absolute Basophils 0.40 10^3/uL (0.02-0.10) H 08/06/17 02:28 RBC/WBC/PLT Morphology NORMAL (NORMAL) 08/06/17 02:28 Platelet Estimate ADEQUATE (ADEQ) 08/06/17 02:28 Sodium 137 mEq/L (134-144) 08/06/17 02:28 Potassium 3.6 mEq/L (3.5-5.2) 08/06/17 02:28 Chloride 98 mEq/L (97-110) 08/06/17 02:28 Carbon Dioxide 26 mEq/l (22-31) 08/06/17 02:28 Anion Gap 13 mEq/L (8-16) 08/06/17 02:28 BUN 10 mg/dL (7-23) 08/06/17 02:28 Creatinine 0.8 mg/dL (0.6-1.0) 08/06/17 02:28 Estimated GFR > 60 08/06/17 02:28 Glucose 107 mg/dL (70-100) H 08/06/17 02:28 Calcium 10.2 mg/dL (8.5-10.4) 08/06/17 02:28 Visualized and Interpreted Chest x-ray results: Yes Chest X-Ray results: infiltrate (bilateral) Assessment & Plan Assessment: 21 yo F with hx asthma, heroine abuse, tobacco abuse presents to ED with SOB 1. acute hypoxic respiratory failure - improved s/p continuous nebs downstairs. titrate down o2 to maintain sats > 90%. continue steroid burst. nebulizer prn. add pulmicort. 2. asthma with exacerbation - s/p solu-medrol. continue steroids, nebs, oxygen 3. multifocal PNA vs mucus plugging vs acute lung injury in setting of smoked heroin- pt with SIRS criteria. started on rocephin/azithromycin will continue. blood cultures pending. lactate WNL. 4. heroine abuse - cessation highly encouraged. patient reports she is planning to return to clinic for suboxone therapy. 5. tobacco abuse - cessation encouraged. nicotine patch prn. 6. depression - continue anti-depressant. FEN - IVF. electrolyte replacement prn. diet as tolerated PPX - SCDs. lovenox. COR - FULL Dispo - patient admitted to SDU for close monitoring. respiratory status improving.
[2017-08-06] MEDS: predniSONE 20 MG TAB PO SCH (07:50)
--- NOTE | 2017-08-06 09:48 | ASMTCMCOM ---
CM Note CM Note Notes: 21 year old female admitted for Asthma exascerbation, Hypoxic respiratory failure, PNA. She smokes heroin and tobacco. Has a hx of depression. Interested in Suboxone Clinics/Providers in [place]. She is set up with a provider in [place] but says that it's too far to travel now that she lives in [place]. A [place] list was given to patient. No other needs at this time. Date Signed: 08/06/2017 09:47 AM Electronically Signed By:Lala Rocha LCSW
[2017-08-06] MEDS ORDERED: LEVALBUTEROL 1.25 MG/3 ML DEYVIAL IH PRN (10:28)
[2017-08-06] MEDS: LEVALBUTEROL 1.25 MG/3 ML DEYVIAL IH SCH ×4 (11:07→22:24)
--- NOTE | 2017-08-06 17:50 | GCON ---
[f rep st] CONSULTATION PULMONARY/CRITICAL CARE CONSULTATION DATE OF CONSULTATION: 08/06/2017 REFERRING PHYSICIAN: Bayron Tan MD REASON FOR CONSULTATION: Evaluation and management of severe asthma. HISTORY OF PRESENT ILLNESS: The patient is a 21-year-old woman who states that she was diagnosed wit h asthma about a year ago. She states that her asthma symptoms of chest tightness and dyspnea are ty pically triggered by heroin inhalation. She states that over the past year she has [facility], with several courses of antibiotics, including hospitalization in February for asthma/pneumonia. More recently, in June, she apparently had symptoms suggestive of pneumonia, so was treated with steroids and antibiotics, with resolution of her symptoms. She had been given Symbicort prior to , but was using it irregularly, but has been using it fairly regularly since then. When she comple christel her antibiotics and steroids, her breathing was quite good on the Symbicort alone, and she was no t needing to use her albuterol inhaler. However, about 3-4 days ago, she had an increase in dyspnea, as well as chest tightness, particularly when she tried to take a full breath. She, again, correlat es this with heroin inhalation. She presented to the Emergency Department early this morning and was admitted. She reports that her breathing is feeling quite a bit better now, and she attributes this to the nebulized bronchodilators. She still has some residual tightness when she takes a deep breat h, and she has a mild cough. PAST MEDICAL HISTORY: Depression. MEDICATIONS: Albuterol p.r.n. and Symbicort. ALLERGIES: None. SOCIAL HISTORY: The patient is a regular smoker of heroin. She smokes 1-6 cigarettes a day. FAMILY HISTORY: Unremarkable. REVIEW OF SYSTEMS: A 10-point review of systems adds nothing to the history of present illness. PHYSICAL EXAMINATION: GENERAL: The patient is awake, alert, in no acute distress. VITAL SIGNS: Bl ood pressure is 112/61, with a heart rate of 95. She is afebrile. Oxygen saturations are 91% on 5 L . HEENT: Normocephalic and atraumatic. No icterus. NECK: No JVD. Trachea is midline. CHEST: S he has bilateral wheezes and rhonchi, as well as some fine bibasilar rales. CARDIAC: Regular rate a nd rhythm without murmur. ABDOMEN: Soft, nontender. Bowel sounds are present. EXTREMITIES: No cl ubbing, cyanosis, or edema. LABORATORY: White blood count is 19.9 with 3% bands, hemoglobin is 16.1. Chemistry group was normal . Chest x-ray shows some bronchial thickening, as well as some small areas of infiltrate in both upp er lung regions, consistent with pneumonia. Images reviewed. ASSESSMENT: 1. Asthma exacerbation. This has apparently been triggered by heroin, which is her most typical tri gger. She is symptomatically improved with bronchodilators, as well as steroids. Her peak flows wer e in the high 100s at baseline, increasing to the mid 200s with bronchodilator. She is feeling more comfortable. 2. Pneumonia. The patient's chest x-ray shows some small areas of infiltrate, and she has a white b lood count. This could be due to a bacterial/viral pneumonia, but also could be due to inhalation pn eumonitis. She had findings of multiple small patchy areas of infiltrate on her CAT scan when she wa s admitted for pneumonia in February, and I suspect her CAT scan would show basilar findings now. She is being treated empirically with azithromycin and ceftriaxone. 3. Heroin abuse. The patient is currently not showing signs or symptoms of withdrawal, but is at [facility] for this. 4. Tobacco abuse. 5. History of depression. PLAN: 1. Change steroids to oral. Continue ceftriaxone and azithromycin for now. I changed her bronchodi lators from albuterol to levalbuterol, as she was tachycardic earlier, but this is improved. 2. I had a discussion regarding the dangers of inhalational heroin use, which can include worsening asthma, as well as potentially permanent interstitial lung disease primarily related to contaminants and other agents used to cut the heroin, which can include talc and other organic substances, which m ay never be fully cleared from the lungs. /[id number]/MODL
[2017-08-06] MEDS ORDERED: LORazepam 1 MG TAB PO PRN (22:30)
[2017-08-07] MEDS ORDERED: AZITHROMYCIN IV 250 MG in D5W 250 ML IV SCH (02:00)
[2017-08-07] MEDS: OXYCODONE/APAP 5/325 TAB PO PRN ×2 (02:35→18:51)
[2017-08-07] MEDS: LEVALBUTEROL 1.25 MG/3 ML DEYVIAL IH SCH ×5 (03:19→17:57)
[2017-08-07 04:46] LABS: % IMMATURE GRANULYOCYTES 0.7 % (0.0-1.1); ABSOLUTE IMMATURE GRANULOCYTES 0.17 10^3/uL (0.00-0.10); ADD DIFF? NO; ADD MORPH? NO; ADD SCAN? NO; ATYPICAL LYMPHOCYTE FLAG 0 (0-99); FRAGMENT RBC FLAG 0 (0-99); HEMATOCRIT 39.5 % (38.0-47.0); HEMOGLOBIN 13.2 g/dL (12.6-16.3); LEFT SHIFT FLG 0 (0-99); LIPEMIA HEMOLYSIS FLAG 80 (0-99); MEAN CELL HEMOGLOBIN 28.5 pg (27.9-34.1); MEAN CELL HEMOGLOBIN CONCENTR. 33.4 g/dL (32.4-36.7); MEAN CELL VOLUME 85.3 fL (81.5-99.8); MEAN PLATELET VOLUME 10.8 fL (8.7-11.7); PLATELET CLUMPS FLAG 0 (0-99); PLATELET COUNT 284 10^3/uL (150-400); RED BLOOD CELL COUNT 4.63 10^6/uL (4.18-5.33); RED CELL DISTRIBUTION WIDTH 13.2 % (11.5-15.2)
[2017-08-07 05:20] LABS: ANION GAP 13 mEq/L (8-16); CALCIUM 9.6 mg/dL (8.5-10.4); CARBON DIOXIDE 23 mEq/l (22-31); CHLORIDE 104 mEq/L (97-110); CREATININE 0.7 mg/dL (0.6-1.0); GLOMERULAR FILTRATION RATE > 60; GLUCOSE 108 mg/dL (70-100); POTASSIUM 4.3 mEq/L (3.5-5.2); SODIUM 140 mEq/L (134-144)
[2017-08-07] MEDS: predniSONE 20 MG TAB PO SCH (08:59)
[2017-08-07] MEDS ORDERED: AZITHROMYCIN 250 MG TAB PO SCH (09:00)
--- NOTE | 2017-08-07 13:47 | HOSPPROG ---
Hospitalist Progress Note Assessment/Plan: 21 yo F w asthma, inhaled heroin use admitted w dys[mohamud. hypoxemia and possible CAP CAP: vs inhalant pneumonitis ceftriaxone/azithro day 2 asthma: severe exacerbation w hypoemia steroids, nebs, abx tobacco use: advised cessation heroin abuse: no evidence of withdrawal tachycardia: sinus dispo: inpatient Subjective: case d/w dr figueroa. persistent hypoxemia Objective: Vital Signs Temp Pulse Resp BP Pulse Ox 36.8 C 77 18 109/70 94 08/07/17 11:45 08/07/17 11:45 08/07/17 11:45 08/07/17 11:45 08/07/17 11:45 Laboratory Results 08/07/17 04:30 08/07/17 04:30 08/06/17 08/07/17 08/08/17 05:59 05:59 05:59 Intake Total 2099 2049 75 Balance 2099 2049 75 - Physical Exam Constitutional: no apparent distress, appears nourished Eyes: PERRL, anicteric sclera Ears, Nose, Mouth, Throat: moist mucous membranes, hearing normal Cardiovascular: regular rate and rhythym, no murmur, rub, or gallop Respiratory: no respiratory distress, reduced air movement, expiratory wheeze, bronchial breath sounds Gastrointestinal: normoactive bowel sounds, soft, non-tender abdomen Genitourinary: no bladder fullness, No verde in urethra Skin: warm, normal color Musculoskeletal: full muscle strength, no muscle tenderness ICD10 Worksheet Patient Problems: Problems Problem Status Onset Acute asthma exacerbation Acute Acute respiratory failure with hypoxia Acute Respiratory distress Acute Exacerbation of asthma Acute Pneumonia Acute
--- NOTE | 2017-08-07 14:13 | PDINTPN ---
Control Director Progress Note Assessment/Plan: Assessment: Severe asthma exacerbation: Improved, with decreased dyspnea/respiratoyr distress, improved PFs. Pneumonia: Could be infectious, but I think it's more likely to be a pneumonitis from heroin/other contaminants. Heroin use: Mild symptoms of withdrawal Plan: Continue nebs,steroids, antibiotics. Observe for symptoms of withdrawal. Check CXR tomorrow. 08/07/17 14:14 Subjective: Breathing feels a bit easier. Still some cough. Feels a bit restless, but able to sleep well today. Objective: Vital Signs Temp Pulse Resp BP Pulse Ox 36.8 C 77 18 109/70 94 08/07/17 11:45 08/07/17 11:45 08/07/17 11:45 08/07/17 11:45 08/07/17 11:45 Laboratory Results 08/07/17 04:30 08/07/17 04:30 08/06/17 08/07/17 08/08/17 05:59 05:59 05:59 Intake Total 2099 Balance 2099 2049 75 Physical Exam - Physical Exam General Appearance: alert, no apparent distress EENT: normal ENT inspection Neck: normal inspection Respiratory: crackles (both bases), wheezing Cardiac/Chest: regular rate, rhythm, No edema Abdomen: normal bowel sounds, non-tender Skin: normal color, warm/dry Extremities: normal inspection Neuro/Psych: alert, normal mood/affect, oriented x 3 ICD10 Worksheet Patient Problems: Problems Problem Status Onset Acute asthma exacerbation Acute Acute respiratory failure with hypoxia Acute Respiratory distress Acute Exacerbation of asthma Acute Pneumonia Acute
--- NOTE | 2017-08-07 15:48 | PDMN ---
Medical Necessity Medical necessity: change to IP. est los >2 mn for severe asthma exacerbation w/ hypoxia r/t inhaled heroin use, CAP vs pneumonitis; for IV abx, O2, steroids & nebs per progress note & order 08/07/17
[2017-08-07] MEDS ORDERED: clonazePAM 1 MG TAB PO PRN (19:38)
[2017-08-07 19:46] VITALS: PULSE 90; RESP 16; TEMP 97.6; O2SAT 97
[2017-08-07 19:47] VITALS: BP 117/71
[2017-08-07] MEDS ORDERED: oxyCODONE IR 5 MG TAB PO PRN (19:55)
--- NOTE | 2017-08-08 11:22 | GDS ---
[f rep st] DISCHARGE SUMMARY The patient left AMA on the evening of 08/07 into the . HOSPITAL COURSE: Please see admission history and physical by Dr. Mary Cooley. The patient is a 21 -year-old female with a history of asthma, tobacco use, and heroin use, using inhaled cocaine who pre sented with increased work of breathing. She had a chest x-ray on presentation showed possible bilat eral pneumonia. This is considered to be a likely community-acquired pneumonia. She was started on ceftriaxone and azithromycin as well as nebulizers and steroids. She did not experience heroin withd rei, however, on the first hospital night, the patient left against medical advice. Further detail s are unavailable. /[id number]/MODL
== END 2017-08-07 20:45 | disposition left against medical advice (07) | DRG 202 ==
LOC: INTOOBSV 03:06 → F2N 05:51 → OBSVTOIN 08-07 14:45 → F2N 08-07 16:48
PROVIDERS: ADMIT Family Medicine; ATTEND Internal Medicine
DX: J45.51 Severe persistent asthma with (acute) exacerbation (principal); R09.02 Hypoxemia; J68.0 Bronchitis and pneumonitis due to chemicals, gases, fumes and vapors; F17.210 Nicotine dependence, cigarettes, uncomplicated; F11.10 Opioid abuse, uncomplicated; F32.9 Major depressive disorder, single episode, unspecified
CPT/HCPCS: 96365; G0378; J0456; J0696; J2405

== ENCOUNTER 2017-11-16 22:24 | Inpatient (IN) | payer MEDICAID ==
--- NOTE | 2017-11-16 22:43 | EDPHY ---
H & P Stated Complaint: SOB AND COUGH FOR PAST 2 DAYS,COUGHING UP YELLOW STUFF. Time Seen by Provider: 11/16/17 22:42 HPI/ROS: HPI: This is a 22-year-old female presents with Chief Complaint: SOB AND COUGH FOR PAST 2 DAYS,COUGHING UP YELLOW STUFF. Location: Chest Quality: Dyspnea Duration: 2 days Signs and Symptoms: No fever, + chills, + fatigue, + wheezing, no chest pain, no lower extremity edema, no cough Timing: Acute on chronic Severity: Moderate to severe Context: Patient has a history of asthma, tobacco use, heroin use, cocaine use presents with rapidly worsening shortness of breath at rest and on exertion over the last 2 days. Patient has been using albuterol nebulizer constantly every hour for the last several hours. Patient on reports that she is on a long acting inhaler. She has had some prior admissions over the last year for asthma exacerbation and pneumonia. Patient did not receive influenza vaccine this year. She is accompanied by her significant other who is clearly under the influence of marijuana and the room smells heavily of this as well. Reports that she was diagnosed with asthma several years ago. She has never had any prior history of intubations. IUD in place for control. Modifying Factors: Albuterol nebulizer Comment: ROS: see HPI Constitutional: No fever, no chills, no weight loss Eyes: No blurred vision Respiratory: + shortness of breath, no cough Cardiovascular: No chest pain Gastrointestinal: No nausea, no vomiting, no diarrhea Genitourinary: No dysuria Extremities: No myalgias Neurologic: No weakness, no numbness Skin: No rashes Hematologic: No bruising, no bleeding MEDICAL/SURGICAL/SOCIAL HISTORY: Medical history: Asthma, Surgical history: Denies Social history: in a relationship. CONSTITUTIONAL: Well-appearing young adult white female, heavily tattooed in [place], awake and alert, no obvious distress HEENT: Atraumatic and normocephalic, PERRL, EOMI. Tympanic membranes clear. Oropharynx clear, no exudate and moist pink mucosa. Airway patent. No lymphadenopathy. No meningismus. Cardiovascular: Normal S1/S2, tachycardia, regular rhythm, without murmur rub or gallop. PULMONARY/CHEST: Symmetrical and nontender. Inspiratory and expiratory wheezing noted throughout. Average air movement with shallow inspiratory effort. + accessory muscle usage. ABDOMEN: Soft, nondistended, nontender, no rebound, no guarding, no peritoneal signs, no masses or organomegaly. No CVAT. EXTREMITIES: 2/2 pulses, strength 5/5, no deformities, no clubbing, no cyanosis or edema. NEUROLOGICAL: no focal neuro deficits. GCS 15. SKIN: Warm and dry, no erythema. no rash. Good capillary refill. Source: Patient Exam Limitations: No limitations - Personal History LMP (Females 10-55): IUD In Place Current Tetanus/Diphtheria Vaccine: Unsure Current Tetanus Diphtheria and Acellular Pertussis (TDAP): Unsure - Medical/Surgical History Hx Asthma: Yes Hx Chronic Respiratory Disease: No Hx Diabetes: No Hx Cardiac Disease: No Hx Renal Disease: No Hx Cirrhosis: No Hx Alcoholism: No Hx HIV/AIDS: No Hx Splenectomy or Spleen Trauma: No Other PMH: heroine use, tobacco smoke, asthma, 3 aborted pregnancies - Social History Smoking Status: Heavy smoker Constitutional: Initial Vital Signs Temperature (C) 37.8 C 11/16/17 22:32 Heart Rate 133 H 11/16/17 22:32 Respiratory Rate 20 11/16/17 22:32 Blood Pressure 118/93 H 11/16/17 22:32 O2 Sat (%) 83 L 11/16/17 22:32 O2 Delivery Mode Nasal Cannula O2 (L/minute) 4 Allergies/Adverse Reactions: No Known Allergies Allergy (Verified 11/16/17 22:35) Home Medications: Medication Instructions Recorded Albuterol [Proventil Inhaler HFA 1 - 2 puffs IH Q4-6PRN PRN 08/06/17 (*)] Medical Decision Making - Diagnostics Imaging Results: Imaging Impressions Chest X-Ray 11/16/17 22:47 Impression: Moderate bronchitis. No other findings for acute cardiopulmonary abnormality. ED Course/Re-evaluation: Patient is tachycardic and hypoxic of 83% on room air upon arrival. She reports her heart rate is so fast because she has been doing multiple nebulizer treatments over the last several hours. Given IV Solu-Medrol 125 mg, 2 g of magnesium sulfate, Xopenex, IV Ativan 1 mg, 2 L normal saline with mildly improved aeration. Chest x-ray my read shows no effusion, opacity, pneumothorax, widened mediastinum. + peribronchial thinking 7081: Reassessed patient; heart rate 110s; improving aeration. Washing TV on her phone and asking for more crackers to eat. D-dimer within normal limits, leukocytosis 14K Patient is currently 86% on 4 L nasal cannula. She is refusing to be admitted to the hospital despite my urging and the nurse's urging. She understands that she could have respiratory decompensation and sudden . She is alert and oriented x4 and competent to make her own decisions. Influenza negative 0120: Patient finally agreeable to admission. Oximizer 8 Liters 88%. 0130: ED decision to consult for admission. Heart rate has decreased from 150- 130. Spoke with hospitalist, Dr. Zepeda, who requested ABG and blood cultures to be drawn. Hospitalist kindly agrees to accept patient for admission and to provide further care and management. This patient was seen under the supervision of my secondary supervising physician. Discussed this patient with Dr. Lei who did not see the patient. Patient's presentation, labs/imaging, treatment and plan of care were discussed with secondary supervising physician. Differential Diagnosis: Shortness of breath including but not limited to pulmonary infectious process, asthma exacerbation, pulmonary embolus, influenza, bronchitis. - Data Points Laboratory Results: Laboratory Results 11/16/17 23:05 11/16/17 23:05 11/16/17 11/16/17 11/16/17 23:16 23:05 23:05 WBC RBC Hgb Hct MCV MCH MCHC RDW Plt Count MPV Neut % (Auto) Lymph % (Auto) [place] % (Auto) Eos % (Auto) Baso % (Auto) Nucleat RBC Rel Count Absolute Neuts (auto) Absolute Lymphs (auto) Absolute Monos (auto) Absolute Eos (auto) Absolute Basos (auto) Absolute Nucleated RBC Immature Gran % Immature Gran # D-Dimer 0.46 ug/mLFEU ug/mLFEU (0.00-0.50) Sodium 136 mEq/L mEq/L (135-145) Potassium 4.9 mEq/L mEq/L (3.5-5.2) Chloride 98 mEq/L mEq/L (97-110) Carbon Dioxide 22 mEq/l mEq/l (22-31) Anion Gap 16 mEq/L mEq/L (8-16) BUN 9 mg/dL mg/dL (7-23) Creatinine 0.9 mg/dL mg/dL (0.6-1.0) Estimated GFR > 60 Glucose 93 mg/dL mg/dL (70-100) Calcium 10.1 mg/dL mg/dL (8.5-10.4) Nasal Influenza A PCR NEGATIVE FOR FLU A (NEGATIVE) Nasal Influenza B PCR NEGATIVE FOR FLU B (NEGATIVE) 11/16/17 23:05 WBC 14.68 10^3/uL H 10^3/uL (3.80-9.50) RBC 5.79 10^6/uL H 10^6/uL (4.18-5.33) Hgb 17.6 g/dL H g/dL (12.6-16.3) Hct 49.6 % H % (38.0-47.0) MCV 85.7 fL fL (81.5-99.8) MCH 30.4 pg pg (27.9-34.1) MCHC 35.5 g/dL g/dL (32.4-36.7) RDW 12.8 % % (11.5-15.2) Plt Count 337 10^3/uL 10^3/uL (150-400) MPV 10.1 fL fL (8.7-11.7) Neut % (Auto) 66.0 % % (39.3-74.2) Lymph % (Auto) 14.3 % L % (15.0-45.0) [place] % (Auto) 6.7 % % (4.5-13.0) Eos % (Auto) 11.1 % H % (0.6-7.6) Baso % (Auto) 1.6 % % (0.3-1.7) Nucleat RBC Rel Count 0.0 % % (0.0-0.2) Absolute Neuts (auto) 9.68 10^3/uL H 10^3/uL (1.70-6.50) Absolute Lymphs (auto) 2.10 10^3/uL 10^3/uL (1.00-3.00) Absolute Monos (auto) 0.99 10^3/uL H 10^3/uL (0.30-0.80) Absolute Eos (auto) 1.63 10^3/uL H 10^3/uL (0.03-0.40) Absolute Basos (auto) 0.23 10^3/uL H 10^3/uL (0.02-0.10) Absolute Nucleated RBC 0.00 10^3/uL 10^3/uL (0-0.01) Immature Gran % 0.3 % % (0.0-1.1) Immature Gran # 0.05 10^3/uL 10^3/uL (0.00-0.10) D-Dimer Sodium Potassium Chloride Carbon Dioxide Anion Gap BUN Creatinine Estimated GFR Glucose Calcium Nasal Influenza A PCR Nasal Influenza B PCR Medications Given: Albuterol (Proventil Neb) 3 ml IH Q4HRS ERA Stop: 05/16/18 01:59 Last Admin: 11/17/17 01:56 Dose: 3 ml Discontinued Medications Magnesium Sulfate (Magnesium Sulf 2 Gm (Premix)) 50 mls @ 50 mls/hr IV EDNOW ONE Stop: 11/16/17 23:45 Last Admin: 11/16/17 23:02 Dose: 50 mls Sodium Chloride (Ns) 1,000 mls @ 0 mls/hr IV ONCE ONE; Wide Open PRN Reason: Protocol Stop: 11/17/17 00:34 Last Admin: 11/17/17 00:34 Dose: 1,000 mls Sodium Chloride (Ns) 1,000 mls @ 0 mls/hr IV EDNOW ONE; Wide Open PRN Reason: Protocol Stop: 11/17/17 00:41 Last Admin: 11/17/17 00:51 Dose: 1,000 mls Levalbuterol (Xopenex 1.25mg Neb) 1.25 mg IH EDNOW ONE Stop: 11/16/17 23:48 Last Admin: 11/17/17 00:51 Dose: 1.25 mg Lorazepam (Ativan Injection) 1 mg IVP EDNOW ONE Stop: 11/16/17 23:48 Last Admin: 11/17/17 00:30 Dose: 1 mg Methylprednisolone Sodium Succinate (Solu-Medrol) 125 mg IVP EDNOW ONE Stop: 11/16/17 22:47 Last Admin: 11/16/17 23:02 Dose: 125 mg Departure - Departure Disposition: [facility] Acute Clinical Impression: Hypoxia, Polysubstance abuse Asthma with acute exacerbation in adult Qualifiers: Asthma severity: severe Asthma persistence: persistent Qualified Code(s): J45.51 - Severe persistent asthma with (acute) exacerbation Condition: Fair
[2017-11-16] MEDS ORDERED: MAGNESIUM SULF 2 GM/WATER 50 ML IV ONE (22:46)
[2017-11-16] MEDS ORDERED: methylPREDNISolone SOD SUCC 125 MG/2 ML VIAL IVP ONE (22:46)
[2017-11-16 23:31] LABS: PLATELET COUNT 337 10^3/uL (150-400)
[2017-11-16] MEDS ORDERED: LORazepam 2 MG/ML INJ IVP ONE (23:47)
[2017-11-16] MEDS ORDERED: LEVALBUTEROL 1.25 MG/3 ML DEYVIAL IH ONE (23:47)
[2017-11-17] MEDS ORDERED: NS 1,000 ML IV ONE ×2 (00:33→00:40)
[2017-11-17] MEDS ORDERED: ALBUTEROL 3 ML DEYVIAL IH PRN (01:32)
[2017-11-17] MEDS ORDERED: ONDANSETRON DISINTEGRATING 4 MG TAB PO PRN (01:32)
[2017-11-17] MEDS: ALBUTEROL 3 ML DEYVIAL IH SCH ×4 (01:56→15:06)
--- NOTE | 2017-11-17 02:59 | PDGENHP ---
History and Physical - Chief Complaint Shortness of breath - History of Present Illness 22 yo F w/ asthma and polysubstance abuse presents with shortness of breath. Patient states she started feeling short of breath about 2 days ago. She has also developed a mostly dry cough since onset. She denies fevers, chills, congestion, or any other symptoms of infection prior to or after onset. She inhales about 1/2 gram of heroin daily and also smokes about 2 cigarettes daily. She uses Symbicort daily as well as albuterol as needed for symptom control. She was using albuterol q30 min prior to arrival in ED with little relief. History Information - Allergies/Home Medication List Allergies/Adverse Reactions: No Known Allergies Allergy (Verified 11/16/17 22:35) Home Medications: Albuterol [Proventil Inhaler HFA (*)] 1 - 2 puffs IH Q4-6PRN PRN 08/06/17 [Last Taken Unknown] I have personally reviewed and updated: family history, medical history - Past Medical History asthma Additional medical history: smokes heroin - Surgical History Reports: no pertinent surgical hx Additional surgical history: patient denies - Family History Additional family history: MGF with tongue cancer - Social History Smoking Status: Heavy smoker Review of Systems Review of Systems: ROS: 10pt was reviewed & negative except for what was stated in HPI & below Physical Exam Physical Exam: Temp Pulse Resp BP Pulse Ox 36.8 C 122 H 17 112/60 88 L 11/17/17 02:23 11/17/17 02:23 11/17/17 02:23 11/17/17 02:23 11/17/17 02:23 O2 (L/minute) 15 Constitutional: appears nourished, not in pain Eyes: PERRL, EOMI Ears, Nose, Mouth, Throat: moist mucous membranes, no oral mucosal ulcers Cardiovascular: regular rate and rhythym, no murmur, rub, or gallop Respiratory: reduced air movement, expiratory wheeze Gastrointestinal: normoactive bowel sounds, soft, non-tender abdomen Skin: warm, normal color Neurologic: AAOx3, CN II-XII Intact Psychiatric: interacting appropriately, not anxious Lab Data & Imaging Review 11/16/17 23:05 11/16/17 23:05 WBC 14.68 10^3/uL (3.80-9.50) H 11/16/17 23:05 RBC 5.79 10^6/uL (4.18-5.33) H 11/16/17 23:05 Hgb 17.6 g/dL (12.6-16.3) H 11/16/17 23:05 Hct 49.6 % (38.0-47.0) H 11/16/17 23:05 MCV 85.7 fL (81.5-99.8) 11/16/17 23:05 MCH 30.4 pg (27.9-34.1) 11/16/17 23:05 MCHC 35.5 g/dL (32.4-36.7) 11/16/17 23:05 RDW 12.8 % (11.5-15.2) 11/16/17 23:05 Plt Count 337 10^3/uL (150-400) 11/16/17 23:05 MPV 10.1 fL (8.7-11.7) 11/16/17 23:05 Neut % (Auto) 66.0 % (39.3-74.2) 11/16/17 23:05 Lymph % (Auto) 14.3 % (15.0-45.0) L 11/16/17 23:05 [place] % (Auto) 6.7 % (4.5-13.0) 11/16/17 23:05 Eos % (Auto) 11.1 % (0.6-7.6) H 11/16/17 23:05 Baso % (Auto) 1.6 % (0.3-1.7) 11/16/17 23:05 Nucleat RBC Rel Count 0.0 % (0.0-0.2) 11/16/17 23:05 Absolute Neuts (auto) 9.68 10^3/uL (1.70-6.50) H 11/16/17 23:05 Absolute Lymphs (auto) 2.10 10^3/uL (1.00-3.00) 11/16/17 23:05 Absolute Monos (auto) 0.99 10^3/uL (0.30-0.80) H 11/16/17 23:05 Absolute Eos (auto) 1.63 10^3/uL (0.03-0.40) H 11/16/17 23:05 Absolute Basos (auto) 0.23 10^3/uL (0.02-0.10) H 11/16/17 23:05 Absolute Nucleated RBC 0.00 10^3/uL (0-0.01) 11/16/17 23:05 Immature Gran % 0.3 % (0.0-1.1) 11/16/17 23:05 Immature Gran # 0.05 10^3/uL (0.00-0.10) 11/16/17 23:05 D-Dimer 0.46 ug/mLFEU (0.00-0.50) 11/16/17 23:05 Puncture Site RIGHT RADIAL 11/17/17 02:00 Patient Temperature 36.7 DEGREES 11/17/17 02:00 pCO2 32 mmHg (34-38) L 11/17/17 02:00 pO2 54 mmHg (65-75) L 11/17/17 02:00 Total CO2 22 mEq/L (23-27) L 11/17/17 02:00 ABG pH 7.43 (7.35-7.45) 11/17/17 02:00 ABG HCO3 21 mEq/L (22-26) L 11/17/17 02:00 ABG O2 Saturation 86 % (92-95) L 11/17/17 02:00 ABG Base Excess -2.1 mEq/L (-2.5-2.5) 11/17/17 02:00 Total O2 Concentration 15.0 LITERS 11/17/17 02:00 Sodium 136 mEq/L (135-145) 11/16/17 23:05 Potassium 4.9 mEq/L (3.5-5.2) 11/16/17 23:05 Chloride 98 mEq/L (97-110) 11/16/17 23:05 Carbon Dioxide 22 mEq/l (22-31) 11/16/17 23:05 Anion Gap 16 mEq/L (8-16) 11/16/17 23:05 BUN 9 mg/dL (7-23) 11/16/17 23:05 Creatinine 0.9 mg/dL (0.6-1.0) 11/16/17 23:05 Estimated GFR > 60 11/16/17 23:05 Glucose 93 mg/dL (70-100) 11/16/17 23:05 Calcium 10.1 mg/dL (8.5-10.4) 11/16/17 23:05 Nasal Influenza A PCR NEGATIVE FOR FLU A (NEGATIVE) 11/16/17 23:16 Nasal Influenza B PCR NEGATIVE FOR FLU B (NEGATIVE) 11/16/17 23:16 Imaging Review: Imaging Impressions Chest X-Ray 11/16/17 22:47 Impression: Moderate bronchitis. No other findings for acute cardiopulmonary abnormality. Assessment & Plan Assessment: 22 yo F w/ asthma and polysubstance abuse presents with asthma exacerbation. Plan: 1. Asthma with acute exacerbation - Trigger is most likely continued use of inhaled substances (heroin, tobacco). Patient denies any signs or symptoms of infection prior to onset of shortness of breath. Significantly hypoxic in the ED but work of breathing significantly improved by the time of arrival to the floor. ABG c/w respiratory alkalosis and hypoxia. - Admit to SDU for close observation - Albuterol q4h ERA + q2h PRN - S/p methylpred 125 mg IV in ED, will continue prednisone 40 mg PO qD 2. AHRF - Most likely 2/2 above, but degree of hypoxia seems severe for moderate asthma exacerbation alone. I wonder if inhaled heroin is leading to alternate hypoxia inducing pathway. A-a gradient elevated at 26 mmHg suggestive of VQ mismatch. - Treat asthma exacerbation as above - Wean O2 as able - Consider CT chest if hypoxia not resolving 3. Polysubstance abuse - Patient admits to inhaling about 1/2 gram of heroin daily. Counseled cessation, will place CM consult. Diet - Regular Code - Full Ppx - Low risk Dispo - Admit to SDU under observation status
[2017-11-17 06:22] LABS: PLATELET COUNT 278 10^3/uL (150-400)
[2017-11-17] MEDS ORDERED: predniSONE 20 MG TAB PO SCH (09:00)
[2017-11-17] MEDS ORDERED: AZITHROMYCIN 250 MG TAB PO ONE (09:14)
[2017-11-17] MEDS ORDERED: ALBUTEROL 3 ML DEYVIAL IH ONE (09:30)
--- NOTE | 2017-11-17 09:55 | GCON ---
[f rep st] CONSULTATION MANAGER FLOAT CONSULTATION REASON FOR ADMISSION: Acute asthma. HISTORY OF PRESENT ILLNESS: The patient is a very pleasant 22-year-old white female with a past [facility] history of polysubstance abuse and asthma. She began having increasing breathlessness 2 days wade or. She does smoke cigarettes. Her symptoms worsened and she sought medical attention. She uses Sy mbicort daily, however, she has also reported that she inhales 0.5 g of heroin daily as well. Curren tly, she is still markedly hypoxemic, and in the step-down unit. She admits to a cough that is nonpr oductive, and she has trouble breathing, especially with any form of exertion. There has been no fev er or night sweats. REVIEW OF SYSTEMS: A 10-point review of systems was performed and was negative except for what was f ound in HPI. PAST MEDICAL HISTORY: Significant for asthma. PAST SURGICAL HISTORY: None. ALLERGIES: No known allergies to medications. FAMILY HISTORY: Noncontributory. SOCIAL HISTORY: She smokes cigarettes, as well as heroin. She states she does not drink much alcoho l. She is single, but has a boyfriend, who was in the room at the time. MEDICATIONS: Include Symbicort and albuterol. PHYSICAL EXAM: VITAL SIGNS: Blood pressure is 109/70, pulse 107, respirations 16, temperature 36.6, oxygen saturation 92% on 15 L OxyMask. GENERAL: She is a well-developed, well-nourished, 22-year-o ld, white female, who is in mild respiratory distress. HEENT: Eyes are PERRL, EOMI. Throat shows n o erythema or tonsillar hypertrophy. NECK: Supple. There is no cervical adenopathy. HEART: Regul ar rate and rhythm, but somewhat tachycardic. LUNGS: Show diminished breath sounds and diffuse whee zing in all lung mena. She is extremely tight. ABDOMEN: Soft, nontender. Bowel sounds are prese nt in all 4 quadrants. EXTREMITIES: No clubbing, cyanosis, or edema. LABORATORIES: White count 7.7, hemoglobin 15, hematocrit 43, platelet count 278. Sodium was 143, po tassium 4.7, chloride 106, CO2 22, BUN 8, creatinine 0.7, glucose is 189. Influenza A and B are nega tive. Arterial blood gas: PH is 7.43, pCO2 32, pO2 of 54, bicarb of 22, oxygen saturation 86%, this is on 15 L. Chest x-ray shows some evidence of bronchitis, but otherwise clear. IMPRESSION: 1. Acute asthma. 2. Acute bronchitis. 3. Tobacco abuse. 4. Polysubstance abuse, including heroin. RECOMMENDATIONS: 1. Continue current nebulized treatments. 2. We will add antibiotics, including azithromycin to the mix. 3. We will increase her steroids to Solu-Medrol 125 q.6. 4. We will start patient on heliox per protocol. 5. We will start IV fluids consisting of D5 half-normal with magnesium. 6. Deep vein thrombosis and pulmonary embolus prophylaxis. 7. Stress ulcer prophylaxis. 8. I have counseled patient on smoking cessation, as well as heroin cessation. /[id number]/MODL
[2017-11-17] MEDS: D5W IV SCH ×2 (10:04→23:44)
[2017-11-17] MEDS: 1/2 NS IV SCH ×2 (10:04→23:44)
[2017-11-17] MEDS: MAGNESIUM SULFATE IV SCH ×2 (10:04→23:44)
[2017-11-17] MEDS: methylPREDNISolone SOD SUCC 125 MG/2 ML VIAL IVP SCH ×3 (12:16→23:51)
[2017-11-17] MEDS ORDERED: EPINEPHrine RACEMIC INH 0.5 ML DEYVIAL IH ONE (14:30)
[2017-11-17] MEDS ORDERED: HYDROmorphONE/DILAUDID 1 MG/ML INJ IVP PRN (14:35)
[2017-11-17] MEDS ORDERED: oxyCODONE IR 5 MG TAB ONE (14:36)
[2017-11-17] MEDS: oxyCODONE IR 5 MG TAB PO PRN ×3 (14:46→22:32)
--- NOTE | 2017-11-17 15:09 | ASMTCMCOM ---
CM Note CM Note Notes: Pt admitted with asthma exacerbation. Here in February and July 2017 for same. Hx polydrug abuse (heroin, cocaine, tobacco). Has been provided resources in past. Currently receiving nebulizer tx, IV ABX, IVF, and steroids. CM will follow for any d/c needs. Date Signed: 11/17/2017 03:08 PM Electronically Signed By:MARYBETH Wood
[2017-11-17] MEDS: LEVALBUTEROL 0.63 MG/3 ML DEYVIAL IH SCH ×2 (16:20→21:03)
[2017-11-17] MEDS: MONTELUKAST SODIUM 10 MG TAB PO SCH (17:10)
--- NOTE | 2017-11-17 17:19 | HOSPPROG ---
Hospitalist Progress Note Assessment/Plan: Brief note: Patient was seen and examined and reviewed with Dr. Yi. She still has oxygen needs and significant wheezing on exam. Her boyfriend reported to the nursing staff that she was continuing to use heroin in her room. Patient stated that she wanted to sign out AMA. I did not feel that the patient had insight or adequate understanding to how ill she was and I would anticipate that she would either or quickly return to the hospital should she attempt to leave. I discussed with her that I would treat her opiate dependency with oxycodone but she would need to forfeit her belongs to security. Security was called to assist with the listed plan. Subjective: Patient denies any significant dyspnea.. Objective: Vital Signs Temp Pulse Resp BP Pulse Ox 36.4 C 121 H 19 113/66 90 L 11/17/17 11:52 11/17/17 16:00 11/17/17 16:00 11/17/17 16:00 11/17/17 16:00 Laboratory Results 11/17/17 04:47 11/17/17 04:47 11/16/17 11/17/17 11/18/17 05:59 05:59 05:59 Intake Total 2500 Output Total 300 Balance 2200 - Physical Exam Constitutional: unkempt Cardiovascular: regular rate and rhythym, no murmur, rub, or gallop Respiratory: no respiratory distress, expiratory wheeze, inspiratory crackles Gastrointestinal: normoactive bowel sounds, soft, non-tender abdomen Genitourinary: No verde in urethra ICD10 Worksheet Patient Problems: Problems Problem Status Onset Asthma with acute exacerbation in adult Acute Hypoxia Acute Polysubstance abuse Acute Acute asthma exacerbation Acute Acute respiratory failure with hypoxia Acute Exacerbation of asthma Acute Pneumonia Acute Respiratory distress Acute
[2017-11-18] MEDS: LEVALBUTEROL 0.63 MG/3 ML DEYVIAL IH SCH ×7 (00:11→19:45)
[2017-11-18] MEDS: oxyCODONE IR 5 MG TAB PO PRN ×2 (02:36→06:39)
[2017-11-18] MEDS: ONDANSETRON 4 MG/2 ML VIAL IVP PRN ×2 (02:40→06:43)
[2017-11-18] MEDS: methylPREDNISolone SOD SUCC 125 MG/2 ML VIAL IVP SCH ×4 (06:39→23:56)
[2017-11-18] MEDS: AZITHROMYCIN 250 MG TAB PO SCH (08:42)
[2017-11-18] MEDS ORDERED: AZITHROMYCIN 250 MG TAB PO SCH (09:00)
--- NOTE | 2017-11-18 09:17 | PDINTPN ---
Supervisor [employer] Progress Note Assessment/Plan: Assessment/plan: * Acute asthma-improved from yesterday. Oxygen requirements are down, though still requiring 6 L. There is less wheeze. -continue steroids at high dose -continue frequent nebulized treatments * Acute respiratory failure secondary to asthma-improved * Acute bronchitis -continue current antibiotics * Polysubstance abuse-this is likely been contributing to her asthma * Medical Detainer Subjective: Complains of generalized muscle aches and insomnia. Wishes to go home. Objective: Vital Signs Temp Pulse Resp BP Pulse Ox 36.9 C 98 15 108/56 L 90 L 11/18/17 08:00 11/18/17 08:00 11/18/17 08:00 11/18/17 08:00 11/18/17 08:00 Laboratory Results 11/17/17 04:47 11/17/17 04:47 11/17/17 11/18/17 11/19/17 05:59 05:59 05:59 Intake Total 2500 2559 Output Total 300 Balance 2200 2559 - Time Spent With Patient Time Spent With Patient: 35 min of time spent with patient, over 1/2 involved with coordination of care or counseling. Case discussed with Nursing and Respiratory therapy Physical Exam - Physical Exam General Appearance: alert, mild distress EENT: PERRL/EOMI, normal ENT inspection Neck: non-tender, full range of motion, supple, normal inspection Respiratory: wheezing (Slight), prolonged expiration, No respiratory distress Cardiac/Chest: normal peripheral pulses, regular rate, rhythm Peripheral Pulses: 2+: carotid (R), carotid (L), femoral (R), femoral (L), dorsalis-pedis (R), dorsalis-pedis (L) Abdomen: normal bowel sounds, non-tender, soft Pelvic Exam: deferred Rectal: deferred Skin: normal color, warm/dry Extremities: normal range of motion, non-tender, normal inspection, normal capillary refill Neuro/Psych: no motor/sensory deficits, alert, normal mood/affect, oriented x 3 ICD10 Worksheet Patient Problems: Problems Problem Status Onset Asthma with acute exacerbation in adult Acute Hypoxia Acute Polysubstance abuse Acute Acute asthma exacerbation Acute Acute respiratory failure with hypoxia Acute Exacerbation of asthma Acute Pneumonia Acute Respiratory distress Acute
[2017-11-18] MEDS: CITALOPRAM 20 MG TAB PO SCH (11:06)
[2017-11-18] MEDS: ENOXAPARIN 40 MG/0.4 ML SYR SC SCH (11:06)
[2017-11-18] MEDS: SENNOSIDES 1 TAB PO SCH ×2 (11:06→19:36)
[2017-11-18] MEDS: oxyCODONE ORAL SOLUTION 10 MG/0.5 ML UDSYR PO PRN ×5 (11:07→23:56)
[2017-11-18] MEDS: POLYETHYLENE GLYCOL 3350 17 GM PKT PO SCH (11:20)
--- NOTE | 2017-11-18 14:34 | CPEKG ---
Heart Rate: 72 RR Interval: 833 P-R Interval: 144 QRSD Interval: 92 QT Interval: 416 QTC Interval: 456 P [place]: 45 QRS [place]: 78 T Wave [place]: 61 EKG Severity - NORMAL ECG - EKG Impression: SINUS RHYTHM Electronically Signed By: Parmjit Panchal 19-Nov-2017 06:06:24
[2017-11-18] MEDS: ACETAMINOPHEN 325 MG TAB PO PRN ×2 (15:23→19:36)
--- NOTE | 2017-11-18 16:26 | HOSPPROG ---
Hospitalist Progress Note Assessment/Plan: #. Acute Hypoxic Resp Failure - improving with much less oxygen need as compared to [address] Yi's assistance on the case and will continue per his recommendations. #. Asthma - treatment as above. It sounds like her outpatient regimen in Symbicort with prn albuterol. #. Suicidality - discussed with family. M1 hold ordered. Anticipate involving psychiatry. #. Depression - history of and previously on citalopram 20mg. We discussed resuming and patient agreeable. #. Heroin Abuse - discussed with social work and looking at rehab options. #. Bowel - miralax and senokot. #. DVT prophylaxis - lovenox #. Dispo - pending psychiatric consultation. Subjective: F/U asthma exacerbation. Case reviewed with family and Dr. Yi. Family reported that patient chrushed her oxycodone and snorted it so we adjusted to liquid. They also shared that she expressed suicidal thoughts. The possibility of placing a M1 hold was discussed with Dr. Yi. We concurred and ordered placed. Objective: Vital Signs Temp Pulse Resp BP Pulse Ox 36.5 C 89 14 112/76 90 L 11/18/17 12:00 11/18/17 14:00 11/18/17 14:00 11/18/17 14:00 11/18/17 15:51 Laboratory Results 11/17/17 04:47 11/17/17 04:47 11/17/17 11/18/17 11/19/17 05:59 05:59 05:59 Intake Total 2500 2559 476 Output Total 300 Balance 2200 2559 476 - Time Spent With Patient Time Spent with Patient: greater than 35 minutes Time Spent with Patient: Greater than 35 minutes spent on this patients care, greater than 50% of time spent counseling, educating, and coordinating care regarding the above mentioned plan. - Physical Exam Constitutional: no apparent distress, not in pain Cardiovascular: regular rate and rhythym, no murmur, rub, or gallop Respiratory: expiratory wheeze, inspiratory crackles, No respiratory distress Gastrointestinal: normoactive bowel sounds, soft, non-tender abdomen Genitourinary: No verde in urethra Skin: warm, normal color Neurologic: AAOx3 Psychiatric: depressed, No anxious ICD10 Worksheet Patient Problems: Problems Problem Status Onset Asthma with acute exacerbation in adult Acute Hypoxia Acute Polysubstance abuse Acute Acute asthma exacerbation Acute Acute respiratory failure with hypoxia Acute Exacerbation of asthma Acute Pneumonia Acute Respiratory distress Acute
--- NOTE | 2017-11-18 16:41 | PDMN ---
Medical Necessity Medical necessity: C/M review: est. > 2 MN LOS for eval and TX of acute and persistent - asthma exacerbation, hypoxic respiratory failure, suicidality requiring planned Psychiatry consult, ongoing M1 hold, IV steroids, pulse oximetry, supplemental O2, suicide precautions in ICU, comorbid depression, heroin abuse per 11/18/2017 Hospitalist progress note.
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
[2017-11-18] MEDS: MONTELUKAST SODIUM 10 MG TAB PO SCH (18:10)
[2017-11-18] MEDS ORDERED: SENNOSIDES 1 TAB PO SCH (21:00)
[2017-11-19] MEDS: oxyCODONE ORAL SOLUTION 10 MG/0.5 ML UDSYR PO PRN ×7 (03:49→22:03)
[2017-11-19] MEDS: LEVALBUTEROL 0.63 MG/3 ML DEYVIAL IH SCH ×4 (06:20→22:22)
[2017-11-19 06:41] LABS: PLATELET COUNT 314 10^3/uL (150-400)
[2017-11-19] MEDS: methylPREDNISolone SOD SUCC 125 MG/2 ML VIAL IVP SCH ×3 (07:15→17:54)
[2017-11-19] MEDS: CITALOPRAM 20 MG TAB PO SCH (08:55)
[2017-11-19] MEDS: AZITHROMYCIN 250 MG TAB PO SCH (08:55)
[2017-11-19] MEDS: SENNOSIDES 1 TAB PO SCH ×2 (08:55→22:03)
[2017-11-19] MEDS: POLYETHYLENE GLYCOL 3350 17 GM PKT PO SCH (08:56)
[2017-11-19] MEDS: ENOXAPARIN 40 MG/0.4 ML SYR SC SCH (08:56)
[2017-11-19] MEDS: ACETAMINOPHEN 325 MG TAB PO PRN ×4 (09:06→22:08)
--- NOTE | 2017-11-19 14:24 | PDINTPN ---
Senior Engineering Tech Progress Note Assessment/Plan: Assessment/plan: 22 F with history of polysubstance abuse including inhaled heroin admitted with acute asthma exacerbation. She was treated appropriately, but found to be smoking heroin in her hospital room so placed on medical detainer. She is known to me from her admission at [facility] 02/2017 with PNA and hypoxemia, but failed to show for several attempts at outpatient management of her asthma. O2 requirements have decreased substantially. * Acute asthma exacerbation with status asthmaticus- most consistent with inhaled heroin, which is a known asthma trigger. Ongoing usage, including in her hospital room makes management challenging to say the least. Given her current stability however, we are now seeing significant stability with near- discharge level control. Will change solumedrol to prednisone and add Symbicort (home regimen) mostly for LABA. Macrolides may have signififa=cant airway benefit aside from antibacterial benefit in asthmatics as well. Continue prn albuterol/levalbuterol and scheduled singulair. Discussed avoiding triggers as outpatient in detail as well as heroin contribution. * Opiate addiction- inpatient rehab being considered at this time. Patient appears interested and cooperative at the moment. Subjective: much improved overnight Objective: Vital Signs Temp Pulse Resp BP Pulse Ox 36.7 C 45 L 14 120/75 97 11/19/17 12:00 11/19/17 12:00 11/19/17 12:00 11/19/17 12:00 11/19/17 12:00 Laboratory Results 11/19/17 06:25 11/19/17 06:25 11/18/17 11/19/17 11/20/17 05:59 05:59 05:59 Intake Total 1100 Balance 1100 Physical Exam - Physical Exam General Appearance: WD/WN, alert, no apparent distress EENT: PERRL/EOMI, pharynx normal Neck: supple Respiratory: wheezing (few wheezes L>R), No respiratory distress, No accessory muscle use, No decreased breath sounds, No crackles, No rales, No stridor, No prolonged expiration, No retractions Cardiac/Chest: regular rate, rhythm, No edema Abdomen: non-tender, soft, No distended Skin: normal color, warm/dry, No cyanosis Lymphatic: no adenopathy Extremities: No pedal edema Neuro/Psych: alert, normal mood/affect, oriented x 3 ICD10 Worksheet Patient Problems: Problems Problem Status Onset Asthma with acute exacerbation in adult Acute Hypoxia Acute Polysubstance abuse Acute Acute asthma exacerbation Acute Acute respiratory failure with hypoxia Acute Exacerbation of asthma Acute Pneumonia Acute Respiratory distress Acute
--- NOTE | 2017-11-19 17:48 | ASMTCMCOM ---
CM Note CM Note Notes: Patient understands that she can't continue using Heroin. She knows that her parents are concerned and trying to find in-pt placement for her. Her plan would be to go somewhere for medical detox and then go to her out-pt clinic-[facility] in [place] for suboxone tx. Difficulty finding detox for Medicaid patient. [facility] does not do Medicaid detox. Contacted [facility] and sent them patient info. They will need a psych eval and will need to know that she is not suicidal. Their facility is not locked, she goes voluntarily. Waiting for psych eval. [facility] has a detox and they report that they always have bed availability. Detox usually lasts 3-5 days and they use Klonodine, this is also a voluntary tx facility. Parents were hoping to get the patient in an in-pt setting for a longer period of time (1mo). Medicaid does not pay for this kind of setting. Parents have been informed of the above. Date Signed: 11/19/2017 05:47 PM Electronically Signed By:Lala Rocha LCSW
[2017-11-19] MEDS: MONTELUKAST SODIUM 10 MG TAB PO SCH (17:54)
--- NOTE | 2017-11-19 19:29 | HOSPPROG ---
Hospitalist Progress Note Assessment/Plan: #. Acute Hypoxic Resp Failure - secondary to asthma. Improving with much less oxygen need. I was able to wean to 1L on my exam. I appreciate Dr. Foster's assistance on the case and will continue per his recommendations. #. Asthma - treatment as above. It sounds like her outpatient regimen in Symbicort with prn albuterol. #. Suicidality - discussed with family. I reviewed case with Dr. Morton with psychiatry today and she will consult. #. Depression - history of and previously on citalopram 20mg. We discussed resuming and patient agreeable. #. Heroin Abuse - discussed with social work and looking at rehab options. Using oxycodone prn for now. #. Bowel - miralax and senokot. #. DVT prophylaxis - lovenox #. Dispo - pending psychiatric consultation looking at inpatient options for opiate addiction. Subjective: F/U asthma exacerbation. Breathing more comfortably today. Seems more comfortable and interactive. Case reviewed with team and case management. We are actively looking at rehab options. The current preference would be inpatient initially and then outpatient. Objective: Vital Signs Temp Pulse Resp BP Pulse Ox 36.5 C 90 15 127/73 H 91 L 11/19/17 15:45 11/19/17 15:45 11/19/17 15:45 11/19/17 15:45 11/19/17 15:45 Laboratory Results 11/19/17 06:25 11/19/17 06:25 11/18/17 11/19/17 11/20/17 05:59 05:59 05:59 Intake Total 1100 700 Balance 1100 700 - Physical Exam Constitutional: no apparent distress, No uncomfortable Cardiovascular: regular rate and rhythym, no murmur, rub, or gallop Respiratory: other (mild wheezes bilaterally but much improved as compared to days prior. ), No respiratory distress Gastrointestinal: normoactive bowel sounds, soft, non-tender abdomen Genitourinary: No verde in urethra Skin: warm, normal color Neurologic: AAOx3 Psychiatric: not anxious ICD10 Worksheet Patient Problems: Problems Problem Status Onset Asthma with acute exacerbation in adult Acute Hypoxia Acute Polysubstance abuse Acute Acute asthma exacerbation Acute Acute respiratory failure with hypoxia Acute Exacerbation of asthma Acute Pneumonia Acute Respiratory distress Acute
[2017-11-19] MEDS: BUDESONIDE/FORMOTEROL 160/4.5 60 PUFFS/MDI IH SCH (22:25)
[2017-11-19] MEDS ORDERED: ONDANSETRON DISINTEGRATING 4 MG TAB PO PRN (23:14)
[2017-11-20 01:12] VITALS: TEMP 97.3
[2017-11-20] MEDS: oxyCODONE ORAL SOLUTION 10 MG/0.5 ML UDSYR PO PRN ×5 (01:12→13:13)
[2017-11-20] MEDS: LEVALBUTEROL 0.63 MG/3 ML DEYVIAL IH SCH (06:22)
[2017-11-20 06:48] LABS: PLATELET COUNT 290 10^3/uL (150-400)
[2017-11-20] MEDS: ACETAMINOPHEN 325 MG TAB PO PRN ×3 (07:20→15:03)
[2017-11-20] MEDS ORDERED: predniSONE 20 MG TAB PO SCH (09:00)
[2017-11-20] MEDS: AZITHROMYCIN 250 MG TAB PO SCH (09:37)
[2017-11-20] MEDS: CITALOPRAM 20 MG TAB PO SCH (09:37)
[2017-11-20] MEDS: POLYETHYLENE GLYCOL 3350 17 GM PKT PO SCH (09:38)
[2017-11-20] MEDS: ENOXAPARIN 40 MG/0.4 ML SYR SC SCH (09:38)
[2017-11-20] MEDS: SENNOSIDES 1 TAB PO SCH (09:38)
[2017-11-20] MEDS: BUDESONIDE/FORMOTEROL 160/4.5 60 PUFFS/MDI IH SCH (09:43)
[2017-11-20] MEDS ORDERED: LEVALBUTEROL 0.63 MG/3 ML DEYVIAL IH PRN (11:30)
[2017-11-20 13:59] VITALS: BP 136/92; PULSE 40; RESP 12; O2SAT 91
--- NOTE | 2017-11-20 15:44 | PDINTPN ---
[place] Team Leader Progress Note Assessment/Plan: Assessment/plan: 22 F with history of polysubstance abuse including inhaled heroin admitted with acute asthma exacerbation. She was treated appropriately, but found to be smoking heroin in her hospital room so placed on medical detainer. She is known to me from her admission at [facility] 02/2017 with PNA and hypoxemia, but failed to show for several attempts at outpatient management of her asthma. O2 requirements have decreased substantially. * Acute asthma exacerbation with status asthmaticus- most consistent with inhaled heroin, which is a known asthma trigger. Ongoing usage, including in her hospital room makes management challenging to say the least. Now on symbicort and prednisone with ongoing stability. Planning dc home soon- she can fu with me as outpatient for further management. Continue prn albuterol/ levalbuterol and scheduled singulair. Discussed avoiding triggers as outpatient in detail as well as heroin contribution. * Opiate addiction- Patient appears interested in detox and cooperative at the moment. 11/20/17 15:42 Subjective: continues to improve from resp standpoint- off O2 Objective: Vital Signs Temp Pulse Resp BP Pulse Ox 36.3 C 40 L 12 136/92 H 91 L 11/20/17 08:00 11/20/17 12:00 11/20/17 12:00 11/20/17 12:00 11/20/17 12:00 Laboratory Results 11/20/17 06:40 11/20/17 06:40 11/19/17 11/20/17 11/21/17 05:59 05:59 05:59 Intake Total 1100 1200 Balance 1100 1200 Physical Exam - Physical Exam General Appearance: alert, no apparent distress EENT: PERRL/EOMI Neck: supple Respiratory: lungs clear, normal breath sounds, No respiratory distress, No accessory muscle use, No wheezing Cardiac/Chest: regular rate, rhythm, No edema Abdomen: non-tender, soft, No distended Skin: normal color, warm/dry, No cyanosis Lymphatic: no adenopathy Extremities: No pedal edema Neuro/Psych: alert, normal mood/affect, oriented x 3 ICD10 Worksheet Patient Problems: Problems Problem Status Onset Asthma with acute exacerbation in adult Acute Hypoxia Acute Polysubstance abuse Acute Acute asthma exacerbation Acute Acute respiratory failure with hypoxia Acute Exacerbation of asthma Acute Pneumonia Acute Respiratory distress Acute
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
--- NOTE | 2017-11-20 19:38 | GDS ---
[f rep st] DISCHARGE SUMMARY DISCHARGE DIAGNOSES: Include: 1. Acute chronic obstructive pulmonary disease exacerbation. 2. Heroin addiction/abuse. 3. Heroin withdrawal. 4. Acute suicidality. 5. Depression. HISTORY OF PRESENT ILLNESS: This is a 22-year-old female who presents with complaints of shortness o f breath. For details of patient's initial presentation, please see the history and physical dated 0 11/16/2017. Consultative services include Pulmonary Critical Care. PROCEDURES: None. HOSPITAL COURSE: By issue: 1. Acute asthma exacerbation. Patient was treated aggressively with steroids, inhaled medications, had marked improvement in her pulmonary function. On the day of disposition, she is saturating with oxygen supplementation in the low 90s. Her wheezing persists but is markedly improved. She will com plete a long taper of prednisone in the outpatient setting. Continue beta agonist and inhaled medica tions. She will follow with Pulmonary Critical Care post disposition as well as her primary care. 2. Heroin addiction. Patient is anxious to initiate Suboxone treatment in the outpatient setting. She is being discharged with p.r.n. clonidine to bridge her to Suboxone evaluation in 48 hours' time coordinated with [facility], who will ultimately receive the patient for Suboxone treatment. 3. Depression. Patient was initiated on antidepressant. This will be continued and followed in the outpatient setting by her outpatient psychiatry team and PCP. MEDICATIONS AT THE TIME OF DISPOSITION: Please reference the med rec printed on 11/20/2017. PENDING STUDIES: At the time of this dictation are none. FOLLOWUP APPOINTMENTS: 1. Include with an outpatient psychiatric provider the day after disposition for initiation of Subox one and ultimately treatment at [facility]. 2. With the primary care provider for ongoing management of her asthma. I spent greater than 30 minutes in the planning and coordination of this discharge. /[id number]/MODL
== END 2017-11-20 15:51 | disposition home or self-care (01) | DRG 202 ==
LOC: F2N 11-17 02:21 → OBSVTOIN 11-18 15:42
PROVIDERS: ADMIT Student in an Organized Health Care Education/Training Program; ATTEND Student in an Organized Health Care Education/Training Program
DX: J45.901 Unspecified asthma with (acute) exacerbation (principal); F11.23 Opioid dependence with withdrawal; F32.9 Major depressive disorder, single episode, unspecified
CPT/HCPCS: 96365; G0378; J1170; J1650; J2060; J2405; J2930; J3475; J7512; J7613

== ENCOUNTER 2018-02-21 08:44 | Emergency (ER) | payer MEDICAID ==
--- NOTE | 2018-02-21 09:14 | EDPHY ---
H & P Stated Complaint: lethragy - Personal History LMP (Females 10-55): Unknown Current Tetanus Diphtheria and Acellular Pertussis (TDAP): Unsure - Medical/Surgical History Hx Asthma: Yes Hx Chronic Respiratory Disease: No Hx Diabetes: No Hx Cardiac Disease: No Hx Renal Disease: No Hx Cirrhosis: No Hx Alcoholism: No Hx HIV/AIDS: No Hx Splenectomy or Spleen Trauma: No Other PMH: heroine use, tobacco smoke, asthma, 3 aborted pregnancies, cocaine use, benzo use - Social History Smoking Status: Heavy smoker Time Seen by Provider: 02/21/18 09:03 HPI/ROS: CHIEF COMPLAINT: Somnolence HISTORY OF PRESENT ILLNESS: 22-year-old female history of polysubstance abuse, arrives via ambulance after she was found sleeping in a hot tub at [employer]. She was noted to be somnolent and stated to EMS that she had taken her normal dose of Xanax, then had exercised and then had gone into the hot tub. There was no submersion injury or resuscitation needed by EMS. No Narcan administered. No pre-hospital medications administered beyond saline. Upon interviewing the patient is challenging to assess history as she is very somnolent. REVIEW OF SYSTEMS: A ten point review of systems was performed and is negative with the exception of the items mentioned in the HPI PAST MEDICAL & SURGICAL HISTORY: COPD. Heroin abuse. Suicide attempt. Depression. SOCIAL HISTORY:Prior history of polysubstance abuse. Denies acute illicit drug use PHYSICAL EXAM 1) GENERAL: Somnolent. Able to be aroused with ammonia inhalant. Well- developed, well-nourished, alert and oriented. Appears to be in no acute distress. Answering questions appropriately. 2) HEAD: Normocephalic, atraumatic 3) HEENT: Pupils equal, round, reactive to light bilaterally. Negative Horners. Nasopharynx, oropharynx, clear. No deformity or angulation of nose. No septal hematoma. No rhinorrhea. No oral trauma. Ears bilaterally with normal tympanic membranes. No hemotympanum. No fluid or blood in the external auditory canal. No raccoon eyes. No Elizalde sign. Teeth are normally aligned with no gross malocclusion, TMJ bilaterally nontender, facial bones nontender including the zygomatic arch, maxilla mandible. 4) NECK: No cervical collar is on. Posterior cervical spine is nontender, no stepoff, no effusion. Full range of motion which does not elicit any midline cervical spine pain, no posterior midline tenderness, no step-off. 5) LUNGS: Clear to auscultation bilaterally, no wheezes, no rhonchi, no retractions. No obvious signs of trauma. No chest wall pain. No flaring, no grunting. Moving symmetrically. No crepitus. 6) HEART: [Regular rate and rhythm, 7) ABDOMEN: No guarding, no rebound, no focal tenderness, no peritoneal signs, no signs of trauma, no ecchymosis 8) MUSCULOSKELETAL: Moving all extremities, no focal areas of tenderness, no obvious trauma. 9) BACK: No midline vertebral tenderness, no fluctuance, no step-off, no obvious trauma, no visual or palpable abnormality. 10) SKIN: No laceration. No abrasion DIFFERENTIAL DIAGNOSIS: In no particular order including but not limited to hypoglycemia, infectious process, electrolyte abnormality, head injury and intoxicants. (Terese España) Constitutional: Initial Vital Signs Temperature (C) 36.7 C 02/21/18 08:55 Heart Rate 68 02/21/18 08:55 Respiratory Rate 14 02/21/18 08:55 Blood Pressure 111/74 02/21/18 08:55 O2 Sat (%) 91 L 02/21/18 08:55 O2 Delivery Mode Room Air O2 (L/minute) 2 Allergies/Adverse Reactions: No Known Allergies Allergy (Verified 11/16/17 22:35) Home Medications: Medication Instructions Recorded Albuterol [Proventil Inhaler HFA 1 - 2 puffs IH Q4-6PRN PRN #1 mdi 11/20/17 (*)] FLUoxetine [Prozac 20 MG (*)] 20 mg PO DAILY 02/21/18 Fluticasone/Salmeter 250/50Mcg 1 puffs IH BID 02/21/18 [Advair 250/50 (*)] Medical Decision Making - Diagnostics Imaging Results: Imaging Impressions Head CT 02/21/18 10:57 Impression: Normal. Results called and discussed with Queenie España PA-C, at 02/21/2018 11:46. ED Course/Re-evaluation: This case was turned over to me at change of shift. I discussed this case with Edy brewster. This patient is just not clearing appropriately. I reviewed all the laboratory studies the patient is not septic, there is no anion gap, the tox screens been reviewed, patient endorses the fact that she took long-acting Xanax and that is why she is not waking up. For the patient's safety we will admit her for observation until she is more arousable. (Macario Gonzalez) 9:17 a.m.: I have reviewed the patient's old medical records which are significant for history of polysubstance abuse, depression. Currently emergency department she is somnolent, unable to provide me consistent history. She has no signs of trauma, specifically no signs of head injury. Per EMS she was found sleeping in the hot tub [place] a local fitness club. Admitted to EMS that she had taken Xanax prior to working out and then went into the hot tub and fell sleep. There is no submersion injury or apnea. At this time she is quite somnolent and I am unable to get a reliable history. She has no signs of trauma, specifically no signs of head injury. Will observe the patient continue IV hydration and cardiac monitoring. 9:40 a.m.: Repeat BMP ordered as the patient did have an elevated potassium however this is a pre-hospital potassium and I want to ensure that this not factitious number. 10:50 a.m.: Re-evaluation. Patient remains somnolent. 12:50 p.m.: Serial evaluations performed on this patient. She remained somnolent minimally arousable 2:45 p.m.: Re-evaluation, somnolent, minimally arousable 4:00 p.m.: Re-evaluation minimally arousable, able to stand only with significant assistance. The patient has been the ER for over 7 hr and has not significantly cleared her altered mental status. I am unable to obtain a significant history and physical. At one point she did state that she may have taken an extended release Xanax from her "research and development chemist friend". Plan will be admission for observation for altered mental status. Consultation with hospitalist Dr. Bayron Tan who will admit patient 4:42 p.m.: Dr. Bayron aTn hospitalist has evaluated the patient. At this time the patient is awake alert oriented person place time events, can be discharged although she needs a ride home. Patient does not meet criteria for admission. Please see Dr. Bayron Tan consultation note. (Terese España) - Data Points Laboratory Results: Laboratory Results 02/21/18 08:45 02/21/18 09:52 02/21/18 02/21/18 02/21/18 11:06 09:52 08:45 WBC RBC Hgb Hct MCV MCH MCHC RDW Plt Count MPV Neut % (Auto) Lymph % (Auto) [place] % (Auto) Eos % (Auto) Baso % (Auto) Nucleat RBC Rel Count Absolute Neuts (auto) Absolute Lymphs (auto) Absolute Monos (auto) Absolute Eos (auto) Absolute Basos (auto) Absolute Nucleated RBC Immature Gran % Seg Neutrophils % Band Neutrophils % Lymphocytes % Eosinophils % Immature Gran # Absolute Seg Neuts Absolute Band Neuts Absolute Lymphocytes Absolute Eosinophils RBC/WBC/PLT Morphology Atypical Lymphocytes Platelet Estimate Sodium 140 mEq/L mEq/L (135-145) Potassium 5.2 mEq/L mEq/L (3.5-5.2) Chloride 106 mEq/L mEq/L (97-110) Carbon Dioxide 25 mEq/l mEq/l (22-31) Anion Gap 9 mEq/L mEq/L (8-16) BUN 9 mg/dL mg/dL (7-23) Creatinine 0.6 mg/dL mg/dL (0.6-1.0) Estimated GFR > 60 Glucose 107 mg/dL H mg/dL (70-100) Calcium 9.0 mg/dL mg/dL (8.5-10.4) Creatine Kinase Beta HCG, Qual NEGATIVE Salicylates Urine Opiates Screen NON-NEGATIVE H (NEGATIVE) Acetaminophen Urine Barbiturates NEGATIVE (NEGATIVE) Ur Phencyclidine Scrn NEGATIVE (NEGATIVE) Ur Amphetamine Screen NEGATIVE (NEGATIVE) U Benzodiazepines Scrn NEGATIVE (NEGATIVE) Urine Cocaine Screen NON-NEGATIVE H (NEGATIVE) U Marijuana (THC) Screen NEGATIVE (NEGATIVE) Ethyl Alcohol 02/21/18 02/21/18 02/21/18 08:45 08:45 08:40 WBC 8.19 10^3/uL 10^3/uL (3.80-9.50) RBC 6.14 10^6/uL H 10^6/uL (4.18-5.33) Hgb 17.9 g/dL H g/dL (12.6-16.3) Hct 53.6 % H % (38.0-47.0) MCV 87.3 fL fL (81.5-99.8) MCH 29.2 pg pg (27.9-34.1) MCHC 33.4 g/dL g/dL (32.4-36.7) RDW 12.4 % % (11.5-15.2) Plt Count 422 10^3/uL H 10^3/uL (150-400) MPV 10.1 fL fL (8.7-11.7) Neut % (Auto) 83.7 % H % (39.3-74.2) Lymph % (Auto) 12.6 % L % (15.0-45.0) [place] % (Auto) 0.9 % L % (4.5-13.0) Eos % (Auto) 1.3 % % (0.6-7.6) Baso % (Auto) 1.0 % % (0.3-1.7) Nucleat RBC Rel Count 0.0 % % (0.0-0.2) Absolute Neuts (auto) 6.86 10^3/uL H 10^3/uL (1.70-6.50) Absolute Lymphs (auto) 1.03 10^3/uL 10^3/uL (1.00-3.00) Absolute Monos (auto) 0.07 10^3/uL L 10^3/uL (0.30-0.80) Absolute Eos (auto) 0.11 10^3/uL 10^3/uL (0.03-0.40) Absolute Basos (auto) 0.08 10^3/uL 10^3/uL (0.02-0.10) Absolute Nucleated RBC 0.00 10^3/uL 10^3/uL (0-0.01) Immature Gran % 0.5 % % (0.0-1.1) Seg Neutrophils % 83 % % Band Neutrophils % 7 % % Lymphocytes % 9 % % Eosinophils % 1 % % Immature Gran # 0.04 10^3/uL 10^3/uL (0.00-0.10) Absolute Seg Neuts 6.80 10^/uL H 10^/uL (1.70-6.50) Absolute Band Neuts 0.57 10^3/uL 10^3/uL (0.00-0.70) Absolute Lymphocytes 0.74 10^3/uL L 10^3/uL (1.00-3.00) Absolute Eosinophils 0.08 10^3/uL 10^3/uL (0.03-0.40) RBC/WBC/PLT Morphology NORMAL (NORMAL) Atypical Lymphocytes 1+ H Platelet Estimate INCREASED H (ADEQ) Sodium 140 mEq/L mEq/L (135-145) Potassium 5.6 mEq/L H mEq/L (3.5-5.2) Chloride 101 mEq/L mEq/L (97-110) Carbon Dioxide 26 mEq/l mEq/l (22-31) Anion Gap 13 mEq/L mEq/L (8-16) BUN 9 mg/dL mg/dL (7-23) Creatinine 0.8 mg/dL mg/dL (0.6-1.0) Estimated GFR > 60 Glucose 116 mg/dL H mg/dL (70-100) Calcium 10.3 mg/dL mg/dL (8.5-10.4) Creatine Kinase 85 IU/L IU/L (0-156) Beta HCG, Qual Salicylates < 1.0 mg/dL L mg/dL (2.0-20.0) Urine Opiates Screen Acetaminophen < 10 mcg/mL L mcg/mL (10-30) Urine Barbiturates Ur Phencyclidine Scrn Ur Amphetamine Screen U Benzodiazepines Scrn Urine Cocaine Screen U Marijuana (THC) Screen Ethyl Alcohol < 10 mg/dL mg/dL (0-10) Medications Given: Discontinued Medications Sodium Chloride (Ns) 1,000 mls @ 0 mls/hr IV ONCE ONE PRN Reason: Wide Open Stop: 02/21/18 09:29 Last Admin: 02/21/18 09:29 Dose: 1,000 mls Departure - Departure Disposition: [facility] Clinical Impression: Substance abuse Altered mental status Qualifiers: Altered mental status type: somnolence Qualified Code(s): R40.0 - Somnolence Condition: Good
[2018-02-21] MEDS ORDERED: AMMONIA AROMATIC 1 EACH AMP IH ONE ×2 (09:17→15:26)
[2018-02-21 09:21] LABS: PLATELET COUNT 422 10^3/uL (150-400)
[2018-02-21] MEDS ORDERED: NS 1,000 ML IV ONE (09:28)
--- NOTE | 2018-02-21 09:52 | CPEKG ---
Heart Rate: 62 RR Interval: 968 P-R Interval: 160 QRSD Interval: 84 QT Interval: 432 QTC Interval: 439 P Keymar: 6 QRS Keymar: 82 T Wave Keymar: 36 EKG Severity - NORMAL ECG - EKG Impression: SINUS RHYTHM EKG Impression: artifact Electronically Signed By: Nano El 21-Feb-2018 15:20:38
[2018-02-21 17:03] VITALS: BP 111/74
--- NOTE | 2018-02-21 17:21 | GCON ---
[f rep st] CONSULTATION DATE OF CONSULTATION: 02/21/2018 HISTORY OF PRESENT ILLNESS: The patient is a 22-year-old female, with a history of asthma and heroin addiction, who was brought in today after being found unresponsive in the pool [facility]. S he was in the emergency department for a number of hours and remained obtunded, so I was asked to adm it the patient for observation. When I speak with the patient, she is alert and arousable. She acknowledges taking a Xanax prior to going to the gym. Tox screen is notably positive for cocaine, opiates. It is actually negative for benzodiazepines. I asked the patient to get up and walk, and she is able to walk without ataxia. Sergio rico has no chest pain or shortness of breath. No fever, chills, cough, sputum, nausea, vomiting, or di arrhea. She expresses a desire to go home. PAST MEDICAL HISTORY: 1. Asthma. She has been admitted here a couple of times. 2. Heroin addiction. Apparently, recently had some outpatient care. ALLERGIES: No known drug allergies. HOME MEDICATIONS: Albuterol, fluoxetine, Advair. SOCIAL HISTORY: Struggling with heroin addiction. Has an apartment. FAMILY HISTORY: Reviewed and unremarkable. PHYSICAL EXAMINATION: PRESENTING VITALS: Temp 36.7, blood pressure 111/74, pulse 60, breathing 14 t imes a minute, 91% on room air. She is now 96% on room air. GENERAL: No acute distress. HEENT: S clerae anicteric. Oropharynx clear. Mucous membranes are moist. NECK: Supple, without lymphadenop athy or JVD. LUNGS: Clear to auscultation bilaterally. HEART: S1, S2. Not tachycardic. ABDOMEN: Soft, nontender, nondistended. LOWER EXTREMITIES: No edema. Calves are nontender. SKIN: Withou t rash. NEUROLOGIC: Exam is nonfocal. LABS: Tox screen is non negative for cocaine and opiates. Sodium 140, potassium 5.2, chloride 106, bicarb 25, BUN 9, creatinine 0.6, glucose 107. Beta hCG is negative. White count 8.2, hematocrit 53 .6, platelets are 422,000. IMAGING: EKG, interpreted by me, shows sinus at 62, with normal axis and intervals. There are no ST or T-wave changes. Noncontrast head CT normal. I have discussed the case with Edy España. ASSESSMENT/PLAN: A 22-year-old female with obtundation, polysubstance abuse. 1. Obtundation appears to have cleared with observation. 2. Hyperkalemia. This is borderline. It is not clear what to make of it. I do not think it repres ents an issue. 3. Polysubstance abuse. Certainly being found obtunded at 9 a.m. in the [employer] pool is a m arker of overzealous use of substances as an outpatient. I advised her to continue to work on this. 4. Asthma. The patient is without wheezes, saturating normally on room air. DISPOSITION: I feel this patient is safe for discharge, and I have taken the liberty of doing so. /[id number]/MODL
== END 2018-02-21 17:01 | disposition still patient (30) ==
LOC: EDUNIT# → UNDOADMOB 16:04
DX: R40.0 Somnolence (principal); F13.20 Sedative, hypnotic or anxiolytic dependence, uncomplicated; J44.9 Chronic obstructive pulmonary disease, unspecified; F17.200 Nicotine dependence, unspecified, uncomplicated
CPT/HCPCS: 80305; G0480

== ENCOUNTER 2018-03-11 23:30 | Emergency (ER) | payer MEDICAID ==
[2018-03-11] MEDS ORDERED: NS 1,000 ML IV ONE (23:39)
[2018-03-11] MEDS ORDERED: methylPREDNISolone SOD SUCC 125 MG/2 ML VIAL IVP ONE (23:39)
[2018-03-11] MEDS ORDERED: IPRATROPIUM/ALBUTEROL 3 ML DEYVIAL IH ONE (23:39)
--- NOTE | 2018-03-11 23:39 | EDPHY ---
H & P Stated Complaint: asthma exacerbation Time Seen by Provider: 03/11/18 23:39 HPI/ROS: HPI CHIEF COMPLAINT: Asthma attack HISTORY OF PRESENT ILLNESS: This patient is a 22-year-old female she has a history of asthma, and continues to smoke marijuana and cigarettes daily, who presents emergency room with worsening shortness of breath. Patient reports that she ran out of her Symbicort and Advair. She became short of breath today and is having trouble catching her breath. Denies any chest pain, denies fever , denies productive cough. But does have wheezing. She came to the emergency room for further evaluation. Upon arrival to the emergency room she is noted to be hypoxic at 90% room air sat, and tachycardic to 110. She has audible wheezing. But air movement is pretty good. Past Medical History: Asthma Past Surgical History: No recent surgery Social History: The daily tobacco use, daily marijuana use, denies other illicit drugs or alcohol. Family History: Noncontributory ROS REVIEW OF SYSTEMS: A comprehensive 10 point review of systems is otherwise negative aside from elements mentioned in the history of present illness. Exam Constitutional appears nontoxic no acute distress, triage nursing summary reviewed, vital signs reviewed, awake/alert. Eyes normal conjunctivae and sclera, EOMI, PERRLA. HENT normal inspection, atraumatic, moist mucus membranes, no epistaxis, neck supple/ no meningismus, no raccoon eyes. Respiratory good air movement bilaterally, audible wheezing at bedside, worse expiratory wheezing, no stridor wheezing throughout all lung mena. Cardiovascular tachycardic, regular rhythm, no murmur, no edema, distal pulses normal. Gastrointestinal soft, non-tender, no rebound, no guarding, normal bowel sounds, no distension, no pulsatile mass. Genitourinary no CVA tenderness. Musculoskeletal no midline vertebral tenderness, full range of motion, no calf swelling, no tenderness of extremities, no meningismus, good pulses, neurovascularly intact. Skin pink, warm, & dry, no rash, skin atraumatic. Neurologic awake, alert and oriented x 3, AAOx3, moves all 4 extremities equally, motor intact, sensory intact, CN II-XII intact, normal cerebellar, normal vision, normal speech. Psychiatric normal mood/affect. Heme/Lymph/Immune no lymphadenopathy. Differential Diagnosis: Includes but is not limited to in a particular order acute asthma attack, reactive airway disease, bronchitis, pneumonia, viral syndrome, tobacco abuse, pneumothorax Medical Decision Making: Plan for this patient IV establishment fluid bolus, IV Solu-Medrol, check basic labs, chest x-ray, DuoNeb breathing treatment and re -evaluate. Re-evaluation: 1250AM: Re-evaluation at this time. Patient is feeling much better. She received 2 DuoNeb breathing treatments here. Solu-Medrol 125 mg IV. Chest x-ray has been reviewed. No pneumonia. She still noted to be tachycardic in the 120s. Will re-evaluate her shortly. 0156: Patient re-evaluate this time she is resting comfortably. She is monitored here for multiple hours. Her pulse ox is 95% on room air. Heart rate 99. She is eager to be discharged. On reassessment of her lungs they are clear with good air movement. I did discuss further observation time in the emergency room reviewed admission tonight for asthma however she declined. She wants to go home. She will be prescribed prednisone, albuterol inhaler, her Symbicort and Advair. I highly encouraged to stop smoking cigarettes and marijuana. This is causing chronic inflammation of her lungs. She understands this and is agreeable. Additionally return precautions discussed she understands return emergency room if develops worsening symptoms questions or concerns. Source: Patient - Personal History LMP (Females 10-55): Unknown Current Tetanus/Diphtheria Vaccine: Unsure - Medical/Surgical History Hx Asthma: Yes Hx Chronic Respiratory Disease: No Hx Diabetes: No Hx Cardiac Disease: No Hx Renal Disease: No Hx Cirrhosis: No Hx Alcoholism: No Hx HIV/AIDS: No Hx Splenectomy or Spleen Trauma: No Other PMH: heroine use, tobacco smoke, asthma, 3 aborted pregnancies, cocaine use, benzo use - Social History Smoking Status: Heavy smoker Constitutional: Initial Vital Signs Temperature (C) 36.4 C 03/11/18 23:31 Heart Rate 115 H 03/11/18 23:31 Respiratory Rate 18 03/11/18 23:31 Blood Pressure 150/99 H 03/11/18 23:31 O2 Sat (%) 90 L 03/11/18 23:31 O2 Delivery Mode Nasal Cannula O2 (L/minute) 2 Allergies/Adverse Reactions: No Known Allergies Allergy (Verified 11/16/17 22:35) Home Medications: Medication Instructions Recorded Albuterol [Proventil Inhaler HFA 1 - 2 puffs IH Q4-6PRN PRN #1 mdi 11/20/17 (*)] FLUoxetine [Prozac 20 MG (*)] 20 mg PO DAILY 02/21/18 Fluticasone/Salmeter 250/50Mcg 1 puffs IH BID 02/21/18 [Advair 250/50 (*)] Albuterol [Proventil Inhaler HFA 1 - 2 puffs IH Q4H #1 mdi 03/11/18 (*)] Budesonide/Formoterol 160/4.5 60 puffs IH BID #1 mdi 03/11/18 [Symbicort 160-4.5 Mcg Inh (*)] Fluticasone/Salmeter 250/50Mcg 1 puffs IH BID #1 disk 03/11/18 [Advair 250/50 (*)] predniSONE 60 mg PO DAILY #15 tab 03/11/18 Medical Decision Making - Diagnostics Imaging Results: Imaging Impressions Chest X-Ray 03/11/18 23:39 IMPRESSION: No evidence for acute cardiopulmonary abnormality. - Data Points Laboratory Results: Laboratory Results 03/11/18 23:45 03/11/18 23:45 03/11/18 03/11/18 23:45 23:45 WBC 14.29 10^3/uL H 10^3/uL (3.80-9.50) RBC 5.27 10^6/uL 10^6/uL (4.18-5.33) Hgb 15.5 g/dL g/dL (12.6-16.3) Hct 46.1 % % (38.0-47.0) MCV 87.5 fL fL (81.5-99.8) MCH 29.4 pg pg (27.9-34.1) MCHC 33.6 g/dL g/dL (32.4-36.7) RDW 12.5 % % (11.5-15.2) Plt Count 387 10^3/uL 10^3/uL (150-400) MPV 9.9 fL fL (8.7-11.7) Neut % (Auto) 48.2 % % (39.3-74.2) Lymph % (Auto) 30.0 % % (15.0-45.0) [place] % (Auto) 4.5 % % (4.5-13.0) Eos % (Auto) 15.6 % H % (0.6-7.6) Baso % (Auto) 1.4 % % (0.3-1.7) Nucleat RBC Rel Count 0.0 % % (0.0-0.2) Absolute Neuts (auto) 6.89 10^3/uL H 10^3/uL (1.70-6.50) Absolute Lymphs (auto) 4.28 10^3/uL H 10^3/uL (1.00-3.00) Absolute Monos (auto) 0.65 10^3/uL 10^3/uL (0.30-0.80) Absolute Eos (auto) 2.23 10^3/uL H 10^3/uL (0.03-0.40) Absolute Basos (auto) 0.20 10^3/uL H 10^3/uL (0.02-0.10) Absolute Nucleated RBC 0.00 10^3/uL 10^3/uL (0-0.01) Immature Gran % 0.3 % % (0.0-1.1) Seg Neutrophils % 50.5 % % Band Neutrophils % 0 % % Lymphocytes % 34.6 % % Monocytes % 3.0 % % Eosinophils % 10.9 % % Basophils % 0 % % Metamyelocytes % 0 % % Myelocytes % 1.0 % % Promyelocytes % 0 % % Blast Cells % 0 % % Immature Gran # 0.04 10^3/uL 10^3/uL (0.00-0.10) Absolute Seg Neuts 7.22 10^/uL H 10^/uL (1.70-6.50) Absolute Band Neuts 0.00 10^3/uL 10^3/uL (0.00-0.70) Absolute Lymphocytes 4.94 10^3/uL H 10^3/uL (1.00-3.00) Absolute Monocytes 0.43 10^3/uL 10^3/uL (0.30-0.80) Absolute Eosinophils 1.56 10^3/uL H 10^3/uL (0.03-0.40) Absolute Basophils 0.00 10^3/uL L 10^3/uL (0.02-0.10) Absolute Metamyelocyte 0.00 10^3/mL 10^3/mL (0.00-0.00) Absolute Myelocytes 0.14 10^3/mL H 10^3/mL (0.00-0.00) Absolute Promyelocytes 0.00 10^3/uL 10^3/uL (0.00-0.00) Absolute Plasma Cells 0.00 10^3/uL 10^3/uL (0.00-0.00) Differential Comment NONE Absolute Blast Cells 0.00 10^3/uL 10^3/uL (0.00-0.00) Plasma Cells % 0 % % Platelet Estimate ADEQUATE (ADEQ) Smear Review By Pending Sodium 142 mEq/L mEq/L (135-145) Potassium 3.8 mEq/L mEq/L (3.3-5.0) Chloride 102 mEq/L mEq/L (97-110) Carbon Dioxide 29 mEq/l mEq/l (22-31) Anion Gap 11 mEq/L mEq/L (8-16) BUN 8 mg/dL mg/dL (7-23) Creatinine 0.7 mg/dL mg/dL (0.6-1.0) Estimated GFR > 60 Glucose 82 mg/dL mg/dL (70-100) Calcium 9.2 mg/dL mg/dL (8.5-10.4) Medications Given: Discontinued Medications Albuterol/Ipratropium (Duoneb) 3 ml IH EDNOW ONE Stop: 03/11/18 23:40 Last Admin: 03/11/18 23:46 Dose: 3 ml Albuterol/Ipratropium (Duoneb) 3 ml IH EDNOW ONE Stop: 03/12/18 00:06 Last Admin: 03/12/18 00:07 Dose: 3 ml Sodium Chloride (Ns) 1,000 mls @ 0 mls/hr IV EDNOW ONE; Wide Open PRN Reason: Protocol Stop: 03/11/18 23:40 Last Admin: 03/11/18 23:46 Dose: 1,000 mls Sodium Chloride (Ns) 1,000 mls @ 0 mls/hr IV ONCE ONE PRN Reason: Wide Open Stop: 03/12/18 00:51 Last Admin: 03/12/18 00:54 Dose: 1,000 mls Methylprednisolone Sodium Succinate (Solu-Medrol) 125 mg IVP EDNOW ONE Stop: 03/11/18 23:40 Last Admin: 03/11/18 23:46 Dose: 125 mg Departure - Departure Disposition: Home, Routine, Self-Care Clinical Impression: Asthma Qualifiers: Asthma severity: mild Asthma persistence: intermittent Asthma complication type : with acute exacerbation Qualified Code(s): J45.21 - Mild intermittent asthma with (acute) exacerbation Condition: Good Instructions: Albuterol (By breathing), Asthma (ED) Additional Instructions: 1. Stay well-hydrated drink lots of fluids. 2. Refrain from smoking tobacco or marijuana. 3. Medications as prescribed including prednisone and albuterol. 4. Return if worse to the emergency room. Referrals: NONE *PRIMARY CARE P,. [Primary Care Provider] - As per Instructions Prescriptions: Albuterol [Proventil Inhaler HFA (*)] 1 - 2 puffs IH Q4H #1 mdi Budesonide/Formoterol 160/4.5 [Symbicort 160-4.5 Mcg Inh (*)] 60 puffs IH BID # 1 mdi Fluticasone/Salmeter 250/50Mcg [Advair 250/50 (*)] 1 puffs IH BID #1 disk predniSONE 60 mg PO DAILY #15 tab
[2018-03-11] MEDS ORDERED: IPRATROPIUM/ALBUTEROL 3 ML DEYVIAL ONE (23:40)
[2018-03-11] MEDS ORDERED: ALBUTEROL INH PREPACK MDI TAKEHOME ONE (23:57)
[2018-03-12] MEDS ORDERED: IPRATROPIUM/ALBUTEROL 3 ML DEYVIAL IH ONE (00:05)
[2018-03-12 00:27] LABS: PLATELET COUNT 387 10^3/uL (150-400)
[2018-03-12] MEDS ORDERED: NS 1,000 ML IV ONE (00:50)
[2018-03-12 02:02] VITALS: BP 131/80
== END 2018-03-12 02:03 | disposition home or self-care (01) ==
DX: J45.21 Mild intermittent asthma with (acute) exacerbation (principal); E86.9 Volume depletion, unspecified; F17.210 Nicotine dependence, cigarettes, uncomplicated
CPT/HCPCS: 96374; J2930

== ENCOUNTER 2018-03-27 20:20 | Emergency (ER) | payer MEDICAID ==
--- NOTE | 2018-03-27 20:37 | EDPHY ---
HPI/HX/ROS/PE/MDM Narrative: CHIEF COMPLAINT: Jaw muscle cramps, day 3 of heroin detox HISTORY OF PRESENT ILLNESS: The patient is a 22 y/o female on her third day of heroin detox complaining of jaw muscle cramps and neck cramps onset two days ago. The cramping in her neck causes her head to turn to the right. She was unable to swallow Tylenol due to the cramping in her jaw and neck. She is taking Kraton, a ground up leaf from [place] used for heroin withdrawal. Of note, patient's wisdom teeth are also coming in and she is experiencing dental pain. For the past 2 years she has used heroin daily, with prior withdrawals she was given Suboxone. On Sunday, 1 week ago, she had a traumatic experience that triggered her most recent heroin melgar. After this melgar, where she took 5 benzodiazepines and heroin, she was seen at [facility] on Sunday, 2 days ago. During this visit they told the patient that she was no longer a candidate for Suboxone. After being discharged from [facility] she went to the [facility], a rehab facility. Family and patient state she was given meds for agitation while at [facility] but do not know what was administered. No fever, chills, chest pain, shortness of breath, palpitations, vomiting, diarrhea, urinary complaints, headache, lightheadedness. REVIEW OF SYSTEMS: Aside from elements discussed in the HPI, a comprehensive 10-point review of systems was reviewed and is negative. PAST MEDICAL HISTORY: Heroin, cocaine, and benzo abuse, asthma SOCIAL HISTORY: Family at [facility], lives in [place], single, student VITAL SIGNS: Reviewed by me GENERAL: Anxious, well-developed, well-nourished, in no respiratory distress. HEENT: Atraumatic. Eyes: No icterus, no injection. Pupils 4-5 mm, reactive. Mouth: moist mucous membranes. No erythema or lesions. Intermittent jaw clenching. Tongue normal, not swollen. Pharynx clear, no swelling or erythema. Neck: supple with no adenopathy. Full range of motion on my exam. LUNGS: Clear to auscultation bilaterally, no wheezes, rhonchi or rales. CARDIAC: Regular rate and rhythm, no rubs, murmurs or gallops. ABDOMEN: Soft, nontender, nondistended, bowel sounds normal. BACK: No CVA tenderness. EXTREMITIES: No trauma. No edema. Range of motion is normal throughout. NEURO: Alert and oriented, grossly nonfocal. SKIN: Warm and dry, no rash. PSYCHIATRIC: Normal mentation, no agitation. Portions of this note were transcribed by a medical housekeeper. I personally performed a history, physical exam, medical decision making, and confirmed accuracy of information the transcribed note. ED Course: The patient is a 22 y/o female on her third day of heroin detox complaining of jaw muscle cramps and neck cramps onset two days ago. On exam she is very anxious and has intermittent jaw clenching. 1mg PO Ativan administered. 2115: Consulted with physician from [facility] regarding patient's care on Sunday. During this visit she received Haldol on two occasions, both with 25mg PO Benadryl co-administered. 2139: Reassessed patient and discussed Ativan and Benadryl prescriptions. See discharge instruction. Return precautions provided; patient is comfortable with this plan. MDM: Diff dx considered included but not limited to torticollis, anxiety, withdrawl symptoms, muscle spasm, dental pain. - Data Points Medications Given: Discontinued Medications Cyclobenzaprine HCl (Flexeril 10 Mg Prepack#3) 1 btl TAKEHOME EDNOW ONE Stop: 03/27/18 21:50 Last Admin: 03/27/18 22:06 Dose: 1 btl Diphenhydramine HCl (Benadryl) 25 mg PO EDNOW ONE Stop: 03/27/18 21:30 Last Admin: 03/27/18 21:38 Dose: 25 mg Lorazepam (Ativan) 1 mg PO EDNOW ONE Stop: 03/27/18 21:10 Last Admin: 03/27/18 21:11 Dose: 1 mg Lorazepam (Ativan 1 Mg Prepack#4) 1 btl TAKEHOME EDNOW ONE Stop: 03/27/18 21:50 Last Admin: 03/27/18 22:07 Dose: 1 btl General Time Seen by Provider: 03/27/18 20:35 Initial Vital Signs: Initial Vital Signs Temperature (C) 36.9 C 03/27/18 20:26 Heart Rate 97 03/27/18 20:26 Respiratory Rate 16 03/27/18 20:26 Blood Pressure 114/82 H 03/27/18 20:26 O2 Sat (%) 99 03/27/18 20:26 O2 Delivery Mode Room Air Allergies/Adverse Reactions: No Known Allergies Allergy (Verified 03/27/18 20:30) Home Medications: Medication Instructions Recorded NK [No Known Home Meds] 03/27/18 Departure - Departure Disposition: Home, Routine, Self-Care Clinical Impression: Anxiety, Heroin withdrawal, Muscle spasm Condition: Fair Instructions: Spasmodic Torticollis (ED) Additional Instructions: Please use Benadryl 25 mg every 6-8 hours as needed for ongoing jaw tightness and neck stiffness especially if the head is turned to 1 side or the other and you are not able to voluntarily release the clenched jaws or turn your head. Okay to take Ativan 1 mg 3 times a day for anxiety related to the heroin withdrawal. You have also been given a prepack of Flexeril. This could be useful if you have significant muscle spasm. Lastly, use ibuprofen 400 mg every 6-8 hours as needed for pain in your teeth. Referrals: [facility],. [Clinic] - As per Instructions Report Scribed for: Raven Garg Report Scribed by: Susanna Morgan Date of Report: 03/27/18 Time of Report: 20:37
[2018-03-27] MEDS ORDERED: LORazepam 1 MG TAB PO ONE (21:09)
[2018-03-27] MEDS ORDERED: diphenhydrAMINE 25 MG CAP PO ONE (21:29)
[2018-03-27] MEDS ORDERED: CYCLOBENZAPRINE 10MG PREPACK#3 BTL TAKEHOME ONE (21:49)
[2018-03-27] MEDS ORDERED: LORAZEPAM 1 MG PREPACK#4 BTL TAKEHOME ONE (21:49)
[2018-03-27 22:20] VITALS: BP 110/81
== END 2018-03-27 22:20 | disposition home or self-care (01) ==
DX: M62.838 Other muscle spasm (principal); J45.909 Unspecified asthma, uncomplicated; F41.9 Anxiety disorder, unspecified

== ENCOUNTER 2018-08-13 22:14 | Emergency (ER) | payer MEDICAID ==
--- NOTE | 2018-08-13 22:18 | EDPHY ---
H & P Source: Patient, Police - Medical/Surgical History Hx Asthma: Yes Hx Chronic Respiratory Disease: No Hx Diabetes: No Hx Cardiac Disease: No Hx Renal Disease: No Hx Cirrhosis: No Hx Alcoholism: No Hx HIV/AIDS: No Hx Splenectomy or Spleen Trauma: No Other PMH: heroine use, tobacco smoke, asthma, 3 aborted pregnancies, cocaine use, benzo use - Social History Smoking Status: Heavy smoker Time Seen by Provider: 08/13/18 22:16 HPI/ROS: HPI CHIEF COMPLAINT: M1 hold by [facility]. Bizarre behavior. HISTORY OF PRESENT ILLNESS: Patient is a 22-year-old female she is brought to the emergency room by police on M1 hold for acting bizarre on campus. They found her at a [employer]. She was staring at the wall speaking incoherently. She presents emergency room, cooperative. She denies SI to me. Please report she was acting very bizarre. When this is that were there called 911 as she appeared to be under the influence of a substance. Past Medical History: PTSD, anxiety, panic attacks, bipolar disorder, asthma Past Surgical History: No recent surgery Social History: Denies use of drugs alcohol tobacco. Family History: Noncontributory ROS REVIEW OF SYSTEMS: 10 Systems were reviewed and negative with the exception of the elements mentioned in the history of present illness. Exam Constitutional nontoxic, triage nursing summary reviewed, vital signs reviewed , awake/alert. Eyes normal conjunctivae and sclera, EOMI, PERRLA. HENT normal inspection, atraumatic, moist mucus membranes, no epistaxis, neck supple/ no meningismus, no raccoon eyes. Respiratory clear to auscultation bilaterally, normal breath sounds, no respiratory distress, no wheezing. Cardiovascular rate normal, regular rhythm, no murmur, no edema, distal pulses normal. Gastrointestinal soft, non-tender, no rebound, no guarding, normal bowel sounds, no distension, no pulsatile mass. Genitourinary no CVA tenderness. Musculoskeletal no midline vertebral tenderness, full range of motion, no calf swelling, no tenderness of extremities, no meningismus, good pulses, neurovascularly intact. Skin pink, warm, & dry, no rash, skin atraumatic. Neurologic awake, alert and oriented x 3, AAOx3, moves all 4 extremities equally, motor intact, sensory intact, CN II-XII intact, normal cerebellar, normal vision, normal speech. Psychiatric normal mood/affect. Heme/Lymph/Immune no lymphadenopathy. Differential Diagnosis: Includes but is not limited to in a particular order acute erin, psychosis, underlying mood disorder, bipolar disorder, substance Medical Decision Making: Plan for this patient she is on M1 hold by police. She will need blood draw and drug screen for medical clearance. She will then need mental health evaluation. Re-evaluation: 0521AM: patient sleeping NAd. 0700AM: Patient signed over to Dr. El. Patient on m1 hold by [facility] [employer], bizarre behavior. Patient has history of polysubstace abuse, PTSD, Bipolar d/o. Pending Eval. (Chuy Hurtado) Constitutional: Initial Vital Signs Temperature (C) 37.0 C 08/13/18 22:15 Heart Rate 102 H 08/13/18 22:15 Respiratory Rate 18 08/13/18 22:15 Blood Pressure 137/98 H 08/13/18 22:15 O2 Sat (%) 96 08/13/18 22:15 O2 Delivery Mode Room Air Allergies/Adverse Reactions: No Known Allergies Allergy (Verified 08/13/18 22:23) Home Medications: Medication Instructions Recorded NK [No Known Home Meds] 03/27/18 Medical Decision Making ED Course/Re-evaluation: 7:00 a.m.-I assumed care of this patient at shift change. History of bipolar disorder, presents with manic behavior. Mental health evaluation pending. 10:00 a.m.-this patient has been seen by mental health and felt appropriate for outpatient treatment of bipolar disorder and PTSD this assessment. She does not meet criteria for an M1 hold. No suicidal or homicidal ideation. She is not gravely disabled. Follow-up with [facility]. (Nano El) Differential Diagnosis: Differential diagnosis includes though it is not limited to suicidal ideation, overdose, acute psychosis, self-injury, alcohol withdrawal. (Nano El) - Data Points Laboratory Results: Laboratory Results 08/13/18 22:54 08/13/18 22:54 08/13/18 08/13/18 08/13/18 22:54 22:54 22:54 WBC 11.49 10^3/uL H 10^3/uL (3.80-9.50) RBC 4.84 10^6/uL 10^6/uL (4.18-5.33) Hgb 15.1 g/dL g/dL (12.6-16.3) Hct 42.7 % % (38.0-47.0) MCV 88.2 fL fL (81.5-99.8) MCH 31.2 pg pg (27.9-34.1) MCHC 35.4 g/dL g/dL (32.4-36.7) RDW 11.6 % % (11.5-15.2) Plt Count 362 10^3/uL 10^3/uL (150-400) MPV 9.5 fL fL (8.7-11.7) Neut % (Auto) 60.5 % % (39.3-74.2) Lymph % (Auto) 28.1 % % (15.0-45.0) Merrick % (Auto) 6.2 % % (4.5-13.0) Eos % (Auto) 3.7 % % (0.6-7.6) Baso % (Auto) 1.1 % % (0.3-1.7) Nucleat RBC Rel Count 0.0 % % (0.0-0.2) Absolute Neuts (auto) 6.95 10^3/uL H 10^3/uL (1.70-6.50) Absolute Lymphs (auto) 3.23 10^3/uL H 10^3/uL (1.00-3.00) Absolute Monos (auto) 0.71 10^3/uL 10^3/uL (0.30-0.80) Absolute Eos (auto) 0.42 10^3/uL H 10^3/uL (0.03-0.40) Absolute Basos (auto) 0.13 10^3/uL H 10^3/uL (0.02-0.10) Absolute Nucleated RBC 0.00 10^3/uL 10^3/uL (0-0.01) Immature Gran % 0.4 % % (0.0-1.1) Immature Gran # 0.05 10^3/uL 10^3/uL (0.00-0.10) Sodium 138 mEq/L mEq/L (135-145) Potassium 4.1 mEq/L mEq/L (3.3-5.0) Chloride 103 mEq/L mEq/L (97-110) Carbon Dioxide 25 mEq/l mEq/l (22-31) Anion Gap 10 mEq/L mEq/L (6-14) BUN 16 mg/dL mg/dL (7-23) Creatinine 0.7 mg/dL mg/dL (0.6-1.0) Estimated GFR > 60 Glucose 98 mg/dL mg/dL (70-100) Calcium 10.0 mg/dL mg/dL (8.5-10.4) Beta HCG, Qual NEGATIVE Urine Opiates Screen Urine Barbiturates Ur Phencyclidine Scrn Ur Amphetamine Screen U Benzodiazepines Scrn Urine Cocaine Screen U Marijuana (THC) Screen Ethyl Alcohol < 10 mg/dL mg/dL (0-10) 08/13/18 22:30 WBC RBC Hgb Hct MCV MCH MCHC RDW Plt Count MPV Neut % (Auto) Lymph % (Auto) Merrick % (Auto) Eos % (Auto) Baso % (Auto) Nucleat RBC Rel Count Absolute Neuts (auto) Absolute Lymphs (auto) Absolute Monos (auto) Absolute Eos (auto) Absolute Basos (auto) Absolute Nucleated RBC Immature Gran % Immature Gran # Sodium Potassium Chloride Carbon Dioxide Anion Gap BUN Creatinine Estimated GFR Glucose Calcium Beta HCG, Qual Urine Opiates Screen NEGATIVE (NEGATIVE) Urine Barbiturates NEGATIVE (NEGATIVE) Ur Phencyclidine Scrn NEGATIVE (NEGATIVE) Ur Amphetamine Screen NEGATIVE (NEGATIVE) U Benzodiazepines Scrn NON-NEGATIVE H (NEGATIVE) Urine Cocaine Screen NEGATIVE (NEGATIVE) U Marijuana (THC) Screen NON-NEGATIVE H (NEGATIVE) Ethyl Alcohol Departure - Departure Disposition: Home, Routine, Self-Care Clinical Impression: Bipolar disorder Qualifiers: Active/Remission status: currently active Current bipolar episode type: hypomanic Qualified Code(s): F31.0 - Bipolar disorder, current episode hypomanic Condition: Fair Instructions: [facility], Bipolar Disorder (ED) Referrals: [facility] [Outside] - As per Instructions (Follow-up as suggested.)
[2018-08-13 23:00] LABS: PLATELET COUNT 362 10^3/uL (150-400)
[2018-08-14 07:19] VITALS: BP 118/79
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
--- NOTE | 2018-08-14 15:25 | ASMTTCLDSP ---
TLC Discharge Disposition Disposition: Answers: Discharge If Answers: Yes DISCHARGED: Patient/family given suicide hotline info & [facility] brochure? Disposition Notes: Notes: Pt stated commitment or ability to keep self safe, denied thoughts of self harm or harm to others. Pt expressed a desire to f/u with [facility] for medication management and counseling. Pt was given local hotline information and [facility] brochure After an Attempt and encouraged to follow up with [facility]. Discharge Concerns/Recommendations: Notes: In consultation with [facility] ED physician, Nano El MD, Dr. El concurred that pt does not appear to meet 27-65 criteria requiring psychiatric hospitalization as pt does not appear to be an imminent risk of harm to self/others/gravely disabled due to a mental illness condition. Dr. El provided verbal order read back vacating M1 hold at 1010 hrs. Was patient given the Answers: Not applicable Inpatient Behavioral Health Prohibited Belongings List while in the ED? Psychiatrist vacating M1 Santiago El MD Hold: Date and time M1 hold 08/14/2018 10:10 AM vacated (time format is hh:mm): Type of Hold: Answers: M1/72-hour Hold Hold initiated by: Answers: Police Date Signed: 08/14/2018 03:25 PM Electronically Signed By:Trent Camarena
== END 2018-08-14 10:26 | disposition home or self-care (01) ==
DX: F31.9 Bipolar disorder, unspecified (principal)
CPT/HCPCS: 80305; G0480